=== PATIENT | male | born 1950 | race African-American/Black ===

== ENCOUNTER 2022-06-29 16:20 | Inpatient (IN) | payer OTHER, MEDICAID ==
[~2022-06-29] VITALS: Ht 175.3 cm; Wt 56.7 kg
[2022-06-29 16:21] VITALS: BP 104/58
--- NOTE | 2022-06-29 16:25 | NUR ---
JESUS VALLADARES VIA GURNEY TO BED 08.
[2022-06-29] MEDS ORDERED: VANCOMYCIN 1,000 MG in DEXTROSE 5% 250 ML IV ONE (16:35)
[2022-06-29] MEDS ORDERED: PIPERACILLIN/TAZOBACTAM 4.5 GM in DEXTROSE 5% 100 ML IV ONE (16:35)
[2022-06-29] MEDS ORDERED: NACL 0.9% 1,000 ML IV ONE (16:35)
[2022-06-29] MEDS ORDERED: ACETAMINOPHEN EXTRA STRENGTH 500 MG TAB PO ONE (17:00)
[2022-06-29] MEDS ORDERED: MORPHINE SULFATE 4 MG/ML SYR IVP ONE (17:00)
[2022-06-29 17:01] LABS: BASOPHILS # (AUTO) 0.1 K/uL (0.00-0.22); BASOPHILS % (AUTO) 0.8 % (0.0-2.0); EOSINOPHILS # (AUTO) 0.1 K/uL (0-0.4); EOSINOPHILS % (AUTO) 0.9 % (0.0-4.0); HEMATOCRIT 24.7 % (36-52); HEMOGLOBIN 7.9 g/dL (12.0-18.0); LYMPHOCYTES # (AUTO) 3.7 K/uL (2.0-11.5); LYMPHOCYTES % (AUTO) 27.5 % (20.5-51.1); MEAN CORPUSCULAR HEMOGLOBIN 30 pg (27-31); MEAN CORPUSCULAR HGB CONC 32 g/dL (33-37); MEAN CORPUSCULAR VOLUME 94.4 fL (80-94); MONOCYTES % (AUTO) 7.5 % (1.7-9.3); NEUTROPHILS # (AUTO) 8.4 K/uL (1.8-7.7); NEUTROPHILS % (AUTO) 63.3 % (42.2-75.2); PLATELET COUNT (AUTO) 172 K/uL (140-450); RED BLOOD CELL COUNT(AUTO) 2.62 MIL/uL (4.20-6.10); RED CELL DISTRIBUTION WIDTH 22.1 % (11.6-13.7); WHITE BLOOD COUNT (AUTO) 13.3 K/uL (4.8-10.8)
[2022-06-29] MEDS ORDERED: VANCOMYCIN 1,000 MG VIAL ONE (17:14)
[2022-06-29] MEDS ORDERED: PIPERACILLIN/TAZOBACTAM 4.5 GM VIAL IV ONE (17:15)
[2022-06-29 17:24] LABS: ALBUMIN 2.2 g/dL (3.4-5.0); ANION GAP 19.2 (8-16); ASPARTATE AMINOTRANSFERASE 89 U/L (15-37); CARBON DIOXIDE 20.2 mmol/L (21-32); CHLORIDE 104 mmol/L (98-107); GLUCOSE 147 mg/dL (74-106); POTASSIUM 3.4 mmol/L (3.5-5.1); SODIUM SERUM 140 mmol/L (136-145); TOTAL BILIRUBIN 0.4 mg/dL (0.0-1.0)
[2022-06-29 17:28] LABS: UREA NITROGEN, BLOOD 67 mg/dL (7-18)
--- NOTE | 2022-06-29 17:40 | NUR ---
72YR OLD MALE BIB EMS C/O R FOOT PAIN. PT LEFT FOOT DECAYING FLESH ; PRESSURE WOUNDS ON SACRAL AREA . PT HAS A RIGHT LEG AMPUTEE. PT LOOKS DESHOVELED. ON INSPECTOR MATERIALS AND PROCESSES. HOB ELEVATED. PT HAD SOILED CLOTHES OF URINE AND STOOL. 20G IV CATH IN R FOREARM. PT IS BED BOUND. SPO2 98% RESP EVEN AND UNLABORED.
--- NOTE | 2022-06-29 17:55 | NUR ---
PT TO CT
--- NOTE | 2022-06-29 19:01 | NUR ---
PRESSURE WOUNDS TO SACRAL AREA AND LEFT FOOT. WOUND PICTURES TAKEN.
--- NOTE | 2022-06-29 19:07 | NUR ---
COVID SWAB COLLECTED
--- NOTE | 2022-06-29 19:29 | NUR ---
PT PROVIDED URINAL AND GIVEN COFFEE. PT PLACED IN HIGH FOWLERS POSITION
[2022-06-29 19:31] LABS: PROTHROMBIN TIME 11.3 secs (10.8-13.4)
[2022-06-29] MEDS ORDERED: VANCOMYCIN PER PHARMACY MC PRN (21:45)
[2022-06-29] MEDS ORDERED: LISI-486 PO (23:39)
[2022-06-29] MEDS ORDERED: ACET-3114 PO (23:39)
--- NOTE | 2022-06-30 00:05 | NUR ---
Patient will be admitted to care of . Admited to TELE. Will go to room 117. Belongings list completed. Report to DEVORA.
[2022-06-30] MEDS ORDERED: PIPERACILLIN/TAZOBACTAM 2.25 GM VIAL IV ONE ×2 (00:53→05:17)
[2022-06-30] MEDS: NACL 0.9% 1,000 ML IV SCH ×2 (00:59→12:27)
[2022-06-30] MEDS: PIPERACILLIN/TAZOBACTAM 2.25 GM in DEXTROSE 5% 50 ML IV SCH ×4 (00:59→17:20)
--- NOTE | 2022-06-30 01:09 | NUR ---
RECEIVED FROM ED AWAKE A/OX3 RIGHT BKA AND WOUNDS NOTED PICTURES ON CHART ASSESSMENT COMPLETED PLAN OF CARE REVIEWED BED BATH GIVEN REPOSITIONED FOR COMFORT MD PAGED REGARDING PRN PAIN MEDCATION WILL CONTINUE TO MONIOTR AND ASSESS
[2022-06-30 04:00] VITALS: BP 118/52
[2022-06-30 07:12] LABS: BASOPHILS % (AUTO) 0.4 % (0.0-2.0); EOSINOPHILS # (AUTO) 0.2 K/uL (0-0.4); EOSINOPHILS % (AUTO) 1.4 % (0.0-4.0); HEMATOCRIT 21.9 % (36-52); HEMOGLOBIN 7.1 g/dL (12.0-18.0); LYMPHOCYTES # (AUTO) 4.5 K/uL (2.0-11.5); LYMPHOCYTES % (AUTO) 35.3 % (20.5-51.1); MEAN CORPUSCULAR HEMOGLOBIN 31 pg (27-31); MEAN CORPUSCULAR HGB CONC 32 g/dL (33-37); MEAN CORPUSCULAR VOLUME 94.5 fL (80-94); MONOCYTES # (AUTO) 0.8 K/uL (0.8-1.0); MONOCYTES % (AUTO) 6.3 % (1.7-9.3); NEUTROPHILS # (AUTO) 7.2 K/uL (1.8-7.7); NEUTROPHILS % (AUTO) 56.6 % (42.2-75.2); PLATELET COUNT (AUTO) 141 K/uL (140-450); RED BLOOD CELL COUNT(AUTO) 2.32 MIL/uL (4.20-6.10); RED CELL DISTRIBUTION WIDTH 21.6 % (11.6-13.7); WHITE BLOOD COUNT (AUTO) 12.7 K/uL (4.8-10.8)
[2022-06-30 07:28] LABS: ANION GAP 14.7 (8-16); CARBON DIOXIDE 22.8 mmol/L (21-32); CHLORIDE 107 mmol/L (98-107); CREATININE 1.7 mg/dL (0.6-1.3); GLUCOSE 112 mg/dL (74-106); POTASSIUM 3.5 mmol/L (3.5-5.1); SODIUM SERUM 141 mmol/L (136-145); UREA NITROGEN, BLOOD 51 mg/dL (7-18)
[2022-06-30] MEDS ORDERED: ONDANSETRON 4 MG/2 ML VIAL IVP PRN (07:40)
[2022-06-30] MEDS ORDERED: DOCUSATE SODIUM 100 MG GELCAP PO PRN (07:40)
[2022-06-30] MEDS ORDERED: POTASSIUM CHLORIDE 10 MEQ TABER PO PRN (07:40)
[2022-06-30] MEDS ORDERED: ZOLPIDEM 10 MG TAB PO PRN (07:40)
[2022-06-30] MEDS: MORPHINE SULFATE 2 MG/ML SYR IVP PRN ×3 (07:53→20:33)
[2022-06-30 07:54] VITALS: BP 121/76
--- NOTE | 2022-06-30 09:01 | NUR ---
PATIENT HAS BEEN SCREENED AND CATEGORIZED HIGH NUTRITION RISK. PATIENT WILL BE SEEN WITHIN 1-2 DAYS OF ADMISSION. REFERRAL RECEIVED FOR PRESSURE INJURY TISHA DELATORRE RD
[2022-06-30] MEDS ORDERED: VANCOMYCIN 1,000 MG in DEXTROSE 5% 250 ML IV SCH (12:00)
--- NOTE | 2022-06-30 12:33 | NUR ---
06/30/22 RD INITIAL ASSESSMENT COMPLETED PLEASE REFER TO NUTRITION ASSESSMENT UNDER CARE ACTIVITY FOR ESTIMATED NUTRITIONAL NEEDS. 1. WHEN/IF MEDICALLY APPROPRIATE, RECOMMEND REGULAR DIET WITH PROSOURCE TID 2. RD TO FOLLOW-UP 3-5 DAYS, MODERATE RISK TISHA DELATORRE RD
[2022-06-30 13:34] VITALS: BP 146/79
--- NOTE | 2022-06-30 14:10 | NUR ---
0730 Pt. in bed, aaox4, pain to left foot, left foot noted to have severe wound, pt. with call light in reach, npo for now due to possible surgery by DPM. 0800 Medicated for pain as rx'd, vss 0900 Pt. resting quietly, no s/s of discomfort, call light in reach 1200 Pt. updated on status of DPM, Dr. vasques pt. is here, will see him today. Left foot andrés. 1400 Medicated for pain as rx'd 06/29 Will monitor.
--- NOTE | 2022-06-30 15:50 | NUR ---
DC PLANNING BLANCA CALL [employer] ENFORCEMENT FOR PUBLIC PROPERTY [employer] PARKING ENFORCEMENT AT . SPOKE TO ACCOUNT ASSOCIATE DOMENIC ABOUT PATIENT SITUATION WITH HIS CAR LEFT IN THE STREETS OF [facility] AND [place]. BLANCA PROVIDED INFORMATION ABOUT HIS SHAUN HERNÁNDEZ 2000 AND EXPLAINED PATIENT'S CONCERNS. PER DOMENIC HE WAS UNABLE TO SEE OR FIND OUT IF CAR HAS ALREADY BEEN PHYSICAL THERAPY NURSE BY THE [employer] OR NOT HOWEVER; HE TOOK ALL THE INFORMATION NEEDED AND MADE A NOTE IN THE CODE ENFORCEMENT SYSTEM TO HOPEFULLY AVOID THAT CAR BEEN TOWN, TOOK THESE TELEGRAPHIC TYPEWRITER REPAIRER INFORMATION AND ENDED THE CALL. Addendum: 07/07/22 at 1712 by Manjula MENDOSA DISCHARGE PLANNING BLANCA CALLED [employer]NF[employer] PUBLIC PROPERTY CEDAR POLICE PARKING ENFORCEMENT FOR THE SECOND TIME AT . SPOKE TO TRAINING ACCOUNT ASSOCIATE BANDAR Bagley TO GET AN UPDATE ON PATIENT'S CAR WHO STILL LEFT PARKED AT IN THE STREETS OF [facility] AND [place]. ACROSS FROM THE [employer] IN [facility]. PER ACCOUNT ASSOCIATE Yudi THE CAR HAS NOT BEEN REPORTED TOWN AND THE NOTE PLACED IN THEIR SYSTEM STATING THAT DEVELOPMENT REPRESENTATIVE OF THE CAR SHAUN HERNÁNDEZ IS IN [facility] AND CAR SHOULD NOT BE TOWN STILL IN PLACE. HOWEVER; PER ACCOUNT ASSOCIATE Yudi PATIENT'S CAR ITS PARK ON RED AND IF SOMEONE MISSES THE NOTE IN THE SYSTEM THE CAN CAN BE PHYSICAL THERAPY NURSE AND BE TOWN AT ANY TIME. THEREFORE SHE STATED THAT IT WOULD BE BEST IF THE CAR LICENCE PLATE CAN BE PROVIDED TO THE CODE ENFORCEMENT. BLANCA EXPLAINED TO ACCOUNT ASSOCIATE Yudi THAT DID NOT HAVE THAT INFORMATION BUT WILL MEET WITH PATIENT TO SEE IF HE CAN PROVIDE IT TO AVOID HIS CAR BEEN TOWN. SW WILL FOLLOW UP NEEDED. SW MEET WITH PATIENT AT BEDSIDE TO EXPLAIN THE SITUATION WITH HIS CAR AND ASK HIM TO PROVIDE INFORMATION OF HIS CAR LICENCE. PATIENT STATED THAT HE DID NOT HAVE THE NUMBER HOWEVER, REPORTED TO THE SW THAT HE HAD CAR INSURANCE AND THAT HE CAN GET THAT INFORMATION FROM THEM IF HE HAD A PHONE TOP CALL THEM. SW MANAGE TO ASSIST PATIENT WITH HAVING STAFF SET UP A PHONE IN HIS ROOM AND PROVIDED HIM WITH [employer] INS. NUMBER FOR HIM TO CALL THEM AND ASK FOR HIS OWN INFORMATION TO BE PROVIDED; THEREFORE PATIENT WILL BE ABLE TO GET INFORMATION AND HAVE [place] CODE COMPLIANCE ASSIST WITH KEEP HIS CAR NOT TOWN AND POSSIBLY EXPLORE WAYS TO GET HIS CAR MOVE TO THE LOCATION HE IS GOING TO BE RESIDING NOW THAT WE ARE AWARE PATIENT HAS INSURANCE AND HE IS ABLE TO GET HIS INS. SERVICES. SW WILL FOLLOW UP NEEDED.
--- NOTE | 2022-06-30 16:09 | NUR ---
DC PLANNING: THE PATIENT WAS BIBA EMS WITH C/O LLE FOOT WOUND X 2 DAYS, ALSO S/P RIGHT BKA, H/O ASTHMA, DM AND HTN. GIVEN VANCO, ZOSYN, ASA, MORPHINE AND IVF'S IN ED. 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 PATIENT HAS PODIATRY CONSULT, DR CRAIG STATES NO SURGICAL INTERVENTION, OPENED UP BLISTERS AT BEDSIDE, POSSIBLE WOUND CARE AND IV ABX MOVING FORWARD. IRA SPOKE WITH THE PATIENT AT BEDSIDE, HE STATES HE LIVES IN HIS CAR AND STATED HIS CONCERN THAT HIS CAR IS IN TRADE WITH HIS WALLET AND RIGHT LEG PROSTHESIS. HE SOMETIMES GOES TO A 89 YEAR OLD FRIENDS HOUSE TO SHOWER AND STAY FOR A SHORT TIME, HAS BEEN LIVING IN HIS CAR FOR THE LAST 3-4 MONTHS. HE WAS LIVING WITH HIS MOTHER IN [place] BUT STATES HE DOESN'T GET ALONG WITH HER AND FLEW OUT HERE. HE HAS INCOME OF SNF AND SSDI, TOTAL $1060/MONTH. HE STATES HE WOULD PREFER TO RETURN TO HIS CAR FOR OP TREATMENT, IRA EXPLAINED THIS PROBABLY WOULDN'T BE POSSIBLE AND WILL PROBABLY NEED SNF PLACEMENT. HE GOES TO [facility] AND WAS SUPPOSED TO SEE HIS MD THERE THIS PAST MONDAY BUT WAS ADMITTED HERE. IRA ENDORSED TO THE PATIENTS BLANCA BEAR THAT HE IS CONCERNED ABOUT HIS CAR, A 2002 [employer] [place], [place] COLORED, PARKED IN TRADE AT [place] AND [facility] [address]AR [facility] [employer]. BLANCA WILL FOLLOW UP WITH OMID NICOLE REGARDING THIS. IRA WILL FOLLOW. Addendum: 07/01/22 at 1252 by Angelita Mcculloguh CM DC PLANNING: THE PATIENT WAS REFERRED TO [facility] FOR SKILLED SERVICE. PER THEIR NIGHT SHIFT MANAGER JESSENIA BARKER ([phone]), THEY HAVE ONE MALE BED AND WILL HOLD IT FOR US EVEN IF HE DOESN'T DC TODAY. NEW ORDER FOR ID CONSULT NOTED. CM WILL FOLLOW. Addendum: 07/01/22 at 1517 by Angelita Mccullough CM DC PLANNING: PATIENT ACCEPTED TO ROOM 1A, DR DIAZ TO FOLLOW. SNF IS ABLE TO DO QD IV ABX ONLY. TRANSPORT NEEDS TO BE ARRANGED WITH CALL THE CAR ([phone] OPT 4 OPT 1) IF PATIENT DC'S THIS WEEKEND. CM WILL FOLLOW. Addendum: 07/01/22 at 1529 by Angelita Mccullough CM DC PLANNING: PLEASE JESSENIA EGAN NIGHT SHIFT MANAGER FOR [facility] REGARDING IV ABX FREQUENCY IF PATIENT HAS DC ORDERS AT [phone]. CM WILL FOLLOW. Addendum: 07/06/22 at 1237 by Angelita Mccullough CM DC PLANNING: ORDERS FOR HLOC OF CARE TRANSFER FOR VASCULAR SURGERY SECONDARY TO OCCLUSION OF RIGHT FEMORAL ARTERY. IRA SPOKE WITH IRA CHILD AT [facility] ([phone] EXT [phone]), ASKED CM TO FAX TO [facility] WHICH IRA DID. MATEUSZ WILL FAX TO [facility] AND WILL DISCUSS THE CASE WITH HER TOBACCO FLAVORER. CM WILL FOLLOW. Addendum: 07/06/22 at 1541 by Angelita Mccullough CM DC PLANNING: HLOC TRANSFER CANCELLED, PER ATTENDING MD PATIENT CAN F/U OP. IRA SPOKE WITH JESSENIA AT [facility] TO ENDORSE PATIENT DC TO SNF IN AM, UPDATED CLINICALS FAXED. IRA WILL FOLLOW. Addendum: 07/07/22 at 1104 by Angelita Mccullough CM DC PLANNING: MESSAGE LEFT FOR KASSI CHILD ([phone] EXT [phone]) ASKING FOR AUTHORIZATION FOR [facility] AND TRANSPORT. POTENTIAL DC TODAY, IRA SPOKE WITH THE PATIENT AT BEDSIDE TO ENDORSE DC, THE PATIENT IS STILL CONCERNED ABOUT HIS CAR, CM LET HIM KNOW THAT HIS SW WILL UPDATE HIM ON HER CONVERSATION WITH [employer]. IRA ALSO ASKED JESSENIA TO HAVE THE [facility] SW CONTINUE TO FOLLOW UP ON THIS. NO [facility], DR DIAZ TO FOLLOW. IRA WILL FOLLOW. Addendum: 07/07/22 at 1318 by Angelita Mccullough CM DC PLANNING: AUTH FROM [facility] FOR [facility] IS [id number], AUTH FOR [facility] IS [id number]. IRA ENDORSED THAT [facility] DOES NOT USUALLY WANT TO PROVIDE NON-MEDICAL TRANSPORT, ALSO SPOKE WITH JESSENIA AT [facility] TO ASK FOR HELP WITH TRANSPORT, SHE STATES SHE WILL TALK TO [facility] AND HER DERRICK BOAT OPERATOR AND WILL CALL CM BACK. ROOM ASSIGNED IS 1A, DR DIAZ TO FOLLOW, NUMBER TO CALL REPORT IS [phone]. CM WILL FOLLOW. Addendum: 07/08/22 at 1159 by Angelita Mccullough CM DC PLANNING: WAITING FOR IV ABX TO BE CHANGED TO QD FREQUENCY AND FINAL DC ORDER. TRANSPORT WILL BE ARRANGED WITH [facility] ONCE ORDERS ARE RECEIVED. CM WILL FOLLOW. Addendum: 07/08/22 at 1503 by Angelita Mccullough CM DC PLANNING: PATIENT TRANSPORT ARRANGED THROUGH [facility], WAITING FOR NAME OF COMPANY. INSPECTOR MULTIFOCAL LENS TIME [id number], DC ENDORSED TO PATIENTS NURSE. CM WILL FOLLOW. Addendum: 07/08/22 at 1559 by Angelita Mccullough CM DC PLANNING: [facility] UNABLE TO TRANSPORT, TRANSPORT ARRANGED WITH [facility] INSPECTOR MULTIFOCAL LENS BETWEEN 1730 AND 1830. CHANGE IN TRANSPORT ENDORSED TO THE PATIENTS NURSE. CM WILL FOLLOW. Addendum: 07/08/22 at 1635 by Angelita Mccullough CM DC PLANNING: [facility] NOTIFIED CM THAT INSPECTOR MULTIFOCAL LENS WILL BE AT 1830. CM WILL FOLLOW. Addendum: 07/08/22 at 1636 by Angelita Mccullough CM DC PLANNING: CORRECTION TO ABOVE NOTE, INSPECTOR MULTIFOCAL LENS TIME WILL BE 1929. CM WILL FOLLOW.
[2022-06-30 16:46] VITALS: BP 150/80
[2022-06-30 20:00] VITALS: BP 127/60
--- NOTE | 2022-06-30 20:22 | NUR ---
ASSUME CARE OF PATIENT pT IS LYING IN BED IS AWAKE. RESP IS UNLABORED ON ROOM AIR. C/O BACK PAIN. TEMP 100.6. [facility]II[facility]ARE ORDERED FOR TEMP AND PAIN. LEISONS NOED ON RIGHT LOWER ECTREMITY IS CLEAN AND ALVARADO.
[2022-06-30] MEDS: ACETAMINOPHEN 325 MG TAB PO PRN (20:32)
--- NOTE | 2022-06-30 20:44 | NUR ---
MORPHINE SULFATE ADMINISTERED FOR C/O BACK PAIN. RR 20.
--- NOTE | 2022-06-30 21:00 | NUR ---
PATIENT SAID HE HAS NO MEDICAL SALES REPRESENTATIVE. MrEFUSED PETROLEUM ENGINEER CONSULTATION.
[2022-07-01] VITALS: BP 128/54
[2022-07-01] MEDS ORDERED: MAG SULF 2000 MG/WATER PREMIX 50 ML IV PRN
[2022-07-01 04:00] VITALS: BP 127/79
[2022-07-01 07:28] LABS: BASOPHILS # (AUTO) 0.1 K/uL (0.00-0.22); BASOPHILS % (AUTO) 0.7 % (0.0-2.0); EOSINOPHILS # (AUTO) 0.2 K/uL (0-0.4); EOSINOPHILS % (AUTO) 1.3 % (0.0-4.0); HEMATOCRIT 23.1 % (36-52); HEMOGLOBIN 7.4 g/dL (12.0-18.0); LYMPHOCYTES % (AUTO) 28.1 % (20.5-51.1); MEAN CORPUSCULAR HEMOGLOBIN 30 pg (27-31); MEAN CORPUSCULAR HGB CONC 32 g/dL (33-37); MEAN CORPUSCULAR VOLUME 94.8 fL (80-94); MONOCYTES # (AUTO) 0.8 K/uL (0.8-1.0); MONOCYTES % (AUTO) 5.7 % (1.7-9.3); NEUTROPHILS # (AUTO) 9.1 K/uL (1.8-7.7); NEUTROPHILS % (AUTO) 64.2 % (42.2-75.2); PLATELET COUNT (AUTO) 150 K/uL (140-450); RED BLOOD CELL COUNT(AUTO) 2.44 MIL/uL (4.20-6.10); RED CELL DISTRIBUTION WIDTH 22.5 % (11.6-13.7); WHITE BLOOD COUNT (AUTO) 14.1 K/uL (4.8-10.8)
[2022-07-01] MEDS: PIPERACILLIN/TAZOBACTAM 2.25 GM in DEXTROSE 5% 50 ML IV SCH ×4 (07:30→23:16)
[2022-07-01] MEDS: NACL 0.9% 1,000 ML IV SCH ×3 (07:32→22:23)
[2022-07-01 07:52] LABS: ANION GAP 14.2 (8-16); CARBON DIOXIDE 22.3 mmol/L (21-32); CHLORIDE 109 mmol/L (98-107); CREATININE 1.4 mg/dL (0.6-1.3); GLUCOSE 117 mg/dL (74-106); POTASSIUM 3.5 mmol/L (3.5-5.1); SODIUM SERUM 142 mmol/L (136-145); UREA NITROGEN, BLOOD 28 mg/dL (7-18)
--- NOTE | 2022-07-01 07:59 | NUR ---
LEFT FOOT WOUND CONSULT NOT DONE, PT SEEN AND TREATED BY IN HOUSE PODIATRY TEAM UNDER DR. CRAIG'S CARE. PLEASE CONTINUE TO FOLLOW PODIATRY 'S ORDER FOR WOUND CARE.
[2022-07-01 08:00] VITALS: BP 132/60
--- NOTE | 2022-07-01 08:00 | NUR ---
PT. ADMITTED WITH MULTIPLE UN-STAGEABLE PRESSURE INJURY TO SACRAL COCCYX, LEFT KNEE AND LEFT HIP. PT. REFUSED WOUND CARE CONSULT, , BED SHEET COVER OVER HIS HEAD ,ATTEMPT X3 AND EXPLAIN TO PT. WITH RISKS AND BENEFIT. PT CONTINUE TO REFUSE. POC DISCUSSED WITH DR. BYRD NOTIFIED.POC DISCUSSED WITH PRIMARY RN TO FOLLOW WOUND CARE PROTOCOLS AT THIS TIME.
--- NOTE | 2022-07-01 08:00 | NUR ---
PT. WITH LOW SHELBY SCALE AT HIGH RISK, CONTINUE TO FOLLOW PRESSURE INJURY PREVENTION INTERVENTIONS. -POSITIONING: TURN AND REPOSITION PATIENT Q 2H OR SOONER USE PILLOWS TO KEEP BONY PROMINENCES FROM DIRECT CONTACT WITH SURFACES USE REPOSITIONING WEDGES TO PROVIDE 30-DEGREE ANGLE FOR SIDE LYING POSITIONS OFFLOADING OR FOAM DRESSING TO ALL TUBING TO PREVENT MEDICAL DEVICES RELATED PRESSURE INJURY -RE-EVALUATING AND MANAGING INCONTINENCE MONITOR SKIN CONDITION DURING POSITION CHANGE DO NOT MASSAGE REDNESS, BONY PROMINENCES FREQUENT MARGARET-CARE AND PROVIDE BARRIER CREAMS PRN IF SOILING MOISTURE CONTROL BY OFFER BED OLIVA/URINAL /ABSORBENT PAD TO WICK AND HOLD MOISTURE KEEP SKIN DRY AND PROTECT FROM FRICTION -MANAGE FRICTION/SHEAR/MOBILITY KEEP HOB AT THE LOWEST LEVEL OF ELEVATION NO MORE THAN 30 DEGREE UNLESS OTHERWISE CONTRAINDICATED USE LIFT SHEET OR TRANSFER DEVICE TO MOVE PATIENT AND PREVENT LATERAL SHEER. PROTECT HEELS, ELBOWS BONY PROMINENCES WITH SKIN BERRIES OR FOAM DRESSING IF EXPOSED TO FRICTION OFFLOAD BILATERAL HEELS BY PLACING PILLOWS UNDER CALVES AT ALL TIMES, UNLESS OTHERWISE CONTRAINDICATED -PRESSURE REDISTRIBUTION SURFACE THERAPY KEHINDE ISOFLEX MATTRESS -NUTRITION: PLEASE FOLLOW RD RECOMMENDATIONS AND OFFER NUTRITION SUPPLEMENTS IF ORDERED. PLEASE CONTACT WOUND CARE NURSE FOR ANY QUESTION AND CHANGE OF WOUND CONDITION.
[2022-07-01 12:00] VITALS: BP 134/61
[2022-07-01] MEDS ORDERED: VANCOMYCIN 1,000 MG in DEXTROSE 5% 250 ML IV SCH (12:00)
[2022-07-01] MEDS: MORPHINE SULFATE 2 MG/ML SYR IVP PRN ×3 (12:18→22:23)
[2022-07-01 16:00] VITALS: BP 134/74
--- NOTE | 2022-07-01 19:20 | NUR ---
RECEIVED PATIENT IN BED ASLEEP, EASILY AROUSABLE BY VERBAL STIMULI. DENIES PAIN AT THIS TIME. NO ACUTE RESPIRATORY DISTRESS NOTED. SKIN WARM AND DRY TO TOUCH. IVF INFUSING WELL ORDERED. BED IN THE LOWEST AND LOCKED POSITION FOR SAFETY, CALL LIGHT WITHIN REACH.
[2022-07-01 20:00] VITALS: BP 147/58
--- NOTE | 2022-07-01 22:23 | NUR ---
PATIENT COMPLAING OF 8/10 RIGHT THIGH PAIN, PROVIDED PAIN MEDICATION. PATIENT INCONTINENT OF URINE, PERINEAL CARE RENDERED. MADE COMFORTABLE IN BED.
--- NOTE | 2022-07-01 23:23 | NUR ---
RE-ASSESSED FOR PAIN, PATIENT IS ASLEEP. NO S/SX OF PAIN NOR DISCOMFORT. CALL LIGHT IN REACH,
[2022-07-02] VITALS: BP 134/61
--- NOTE | 2022-07-02 02:00 | NUR ---
PATIENT ASLEEP. BREATHING EVEN AND UNLABORED.
--- NOTE | 2022-07-02 03:30 | NUR ---
INCONTINENT OF URINE, AM CARE RENDERED. MADE COMFORTABLE IN BED. CALL LIGHT IN REACH.
[2022-07-02] MEDS: MORPHINE SULFATE 2 MG/ML SYR IVP PRN ×3 (03:40→12:25)
[2022-07-02 04:00] VITALS: BP 124/60
[2022-07-02] MEDS: PIPERACILLIN/TAZOBACTAM 2.25 GM in DEXTROSE 5% 50 ML IV SCH ×4 (05:03→23:01)
--- NOTE | 2022-07-02 06:09 | NUR ---
PATIENT IS ASLEEP. ALL NEEDS ATTENDED TO. NO DISTRESS NOTED. SAFETY PRECAUTIONS MAINTAINED DURING THE SHIFT, CALL LIGHT REMAINED WITHIN REACH.
--- NOTE | 2022-07-02 07:34 | NUR ---
SBAR REPORT RECEIVED FROM ALBINA RN, ALL CARES ASSUMED. BED IN LOW AND LOCKED POSITION. CALL LIGHT WITHIN REACH.
[2022-07-02 07:36] LABS: HEMATOCRIT 23.7 % (36-52); HEMOGLOBIN 7.5 g/dL (12.0-18.0); MEAN CORPUSCULAR HEMOGLOBIN 31 pg (27-31); MEAN CORPUSCULAR HGB CONC 32 g/dL (33-37); MEAN CORPUSCULAR VOLUME 97.5 fL (80-94); PLATELET COUNT (AUTO) 136 K/uL (140-450); RED BLOOD CELL COUNT(AUTO) 2.43 MIL/uL (4.20-6.10); RED CELL DISTRIBUTION WIDTH 21.7 % (11.6-13.7); WHITE BLOOD COUNT (AUTO) 15.1 K/uL (4.8-10.8)
[2022-07-02 07:57] LABS: ANION GAP 14.5 (8-16); CARBON DIOXIDE 21.2 mmol/L (21-32); CHLORIDE 108 mmol/L (98-107); CREATININE 1.1 mg/dL (0.6-1.3); GLUCOSE 88 mg/dL (74-106); POTASSIUM 3.7 mmol/L (3.5-5.1); SODIUM SERUM 140 mmol/L (136-145); UREA NITROGEN, BLOOD 14 mg/dL (7-18)
[2022-07-02 08:00] VITALS: BP 125/51
[2022-07-02] MEDS: NACL 0.9% 1,000 ML IV SCH ×2 (10:21→20:24)
[2022-07-02 11:28] LABS: EOSINOPHILS % (MANUAL) 2 % (0-4); LYMPHOCYTES % (MANUAL) 30 % (20-46); METAMYELOCYTES % 3 % (0-0); MONOCYTES % (MANUAL) 7 % (5-12); MYELOCYTES % 2 % (0-0)
[2022-07-02 12:00] VITALS: BP 113/55
[2022-07-02 16:00] VITALS: BP 125/66
--- NOTE | 2022-07-02 18:00 | NUR ---
PT COMPLAINING OF PAIN AT IV SITE. IV REMOVED. NEW IV PLACED TO LEFT FOREARM, 20G, BLOOD RETURN NOTED, FLUSHED WITH NORMAL SALINE.
--- NOTE | 2022-07-02 19:20 | NUR ---
SBAR REPORT GIVEN TO ALBINA SOLARES, ALL CARES ENDORSED.
--- NOTE | 2022-07-02 19:25 | NUR ---
REPORT GIVEN BY AM RN. PATIENT IS ASLEEP, EASILY AWAKEN BY VERBAL STIMULI. DENIES PAIN AT THIS TIME. DENIES SHORTNESS OF BREATH. SKIN WARM AND DRY TO TOUCH. IVF OF NS AT 100 ML/HR INFUSING WELL ORDERED IN THE LEFT FOREARM, NO REDNESS NOR SWELLING NOTED. BED IN THE LOWEST AND LOCKED POSITION FOR SAFETY, CALL LIGHT IN REACH.
[2022-07-02 20:00] VITALS: BP 136/70
[2022-07-02] MEDS: MAGNESIUM OXIDE 400 MG TAB PO SCH (20:11)
--- NOTE | 2022-07-02 22:00 | NUR ---
REPOSITIONED FOR COMFORT. IVF INFUSING WELL ORDERED. CALL LIGHT IN REACH,
[2022-07-03] MEDS: MORPHINE SULFATE 2 MG/ML SYR IVP PRN ×3 (00:09→21:48)
--- NOTE | 2022-07-03 00:09 | NUR ---
PATIENT COMPLAINING OF 8/10 RIGHT HIP PAIN, MEDICATED ORDERED.
--- NOTE | 2022-07-03 01:09 | NUR ---
RE-ASSESSED FOR PAIN, PATIENT IS ASLEEP. NO S/SX OF PAIN NOR DISCOMFORT. CALL LIGHT IN REACH.
--- NOTE | 2022-07-03 02:58 | NUR ---
ROUNDING DONE. PATIENT ASLEEP. BREATHING EVEN AND UNLABORED. CALL LIGHT IN REACH,
[2022-07-03 04:00] VITALS: BP 127/76
--- NOTE | 2022-07-03 05:00 | NUR ---
AM CARE RENDERED. MADE COMFORTABLE IN BED. CALL LIGHT IN REACH.
[2022-07-03] MEDS: NACL 0.9% 1,000 ML IV SCH ×2 (05:06→16:06)
[2022-07-03] MEDS: PIPERACILLIN/TAZOBACTAM 2.25 GM in DEXTROSE 5% 50 ML IV SCH ×3 (05:07→17:19)
--- NOTE | 2022-07-03 06:25 | NUR ---
PATIENT IS ASLEEP. ALL NEEDS ATTENDED TO. SAFETY PRECAUTIONS MAINTAINED DURING THE SHIFT. CALL LIGHT REMAINED WITHIN REACH,
--- NOTE | 2022-07-03 07:15 | NUR ---
RECEIVED BEDSIDE REPORT FROM ALBINA SMITH RN FOR CONTINUITY OF CARE. PT IN THE BED, AAOX4, ON RM AIR. 20G TO RFA, INFUSING NS AT 100 ML/H. CONTINENT OF BOWEL AND BLADDER. SKIN NOT INTACT, SEE WOUND ASSESSMENT. SAFETY PRECAUTIONS MET. INITIAL ASSESSMENT COMPLETE, WILL CONTINUE TO MONITOR.
[2022-07-03 07:34] LABS: HEMATOCRIT 24.2 % (36-52); HEMOGLOBIN 7.7 g/dL (12.0-18.0); MEAN CORPUSCULAR HEMOGLOBIN 31 pg (27-31); MEAN CORPUSCULAR HGB CONC 32 g/dL (33-37); MEAN CORPUSCULAR VOLUME 96.9 fL (80-94); PLATELET COUNT (AUTO) 134 K/uL (140-450); RED CELL DISTRIBUTION WIDTH 21.5 % (11.6-13.7); WHITE BLOOD COUNT (AUTO) 17.4 K/uL (4.8-10.8)
[2022-07-03 07:52] LABS: ANION GAP 12.2 (8-16); CARBON DIOXIDE 23.5 mmol/L (21-32); CHLORIDE 106 mmol/L (98-107); GLUCOSE 98 mg/dL (74-106); POTASSIUM 3.7 mmol/L (3.5-5.1); SODIUM SERUM 138 mmol/L (136-145); UREA NITROGEN, BLOOD 12 mg/dL (7-18)
[2022-07-03 08:00] VITALS: BP 131/63
[2022-07-03 08:12] LABS: BASOPHILS % (MANUAL) 0 % (0-2); EOSINOPHILS % (MANUAL) 1 % (0-4); LYMPHOCYTES % (MANUAL) 16 % (20-46); MONOCYTES % (MANUAL) 5 % (5-12)
[2022-07-03 08:13] LABS: METAMYELOCYTES % 3 % (0-0); MYELOCYTES % 2 % (0-0)
[2022-07-03] MEDS: VANCOMYCIN 1,000 MG in DEXTROSE 5% 250 ML IV SCH (09:10)
[2022-07-03] MEDS: MAGNESIUM OXIDE 400 MG TAB PO SCH (09:11)
--- NOTE | 2022-07-03 09:30 | NUR ---
AM MEDS GIVEN ORDERED. TOLERATED WELL. WILL CONTINUE TO MONITOR
--- NOTE | 2022-07-03 10:30 | NUR ---
DR JONH FOURNIER AT BEDSIDE, ORDERED PT TO BE FULL CODE.
--- NOTE | 2022-07-03 12:30 | NUR ---
IV ZOSYN GIVEN ORDERED. WILL CONTINUE TO MONITOR. PT RESTING, NO S/S ACUTE DISTRESS.
--- NOTE | 2022-07-03 12:40 | NUR ---
PT COMPLAINS OF 6/10 PAIN IN BACK/ABD. MORPHINE GIVEN ORDERED. WILL CONTINUE TO MONITOR.
--- NOTE | 2022-07-03 13:30 | NUR ---
DR MCLAUGHLIN ROUNDING AT BEDSIDE. NO NEW ORDERS.
--- NOTE | 2022-07-03 15:30 | NUR ---
IV ZOSYN GIVEN ORDERED. PT HAS NO COMPLAINT OF PAIN. WILL CONTINUE TO MONITOR Addendum: 07/03/22 at 1833 by Mara Shell RN WRONG TIME PLEASE DISREGARD
--- NOTE | 2022-07-03 15:30 | NUR ---
PT RESTING, NO S/S DISTRESS. RESPIRATIONS EVEN AND UNLABORED.
[2022-07-03 16:00] VITALS: BP 135/61
--- NOTE | 2022-07-03 16:00 | NUR ---
ADMINISTERED NEW BAG OF 1L NS, OLD BAG EMPTY.
--- NOTE | 2022-07-03 17:30 | NUR ---
IV ZOSYN GIVEN ORDERED. PT HAS NO COMPLAINT OF PAIN. WILL CONTINUE TO MONITOR
--- NOTE | 2022-07-03 19:26 | NUR ---
ENDORSED BEDSIDE REPORT TO NIGHT RN ALEJO FOR CONTINUITY OF CARE. PT IN NO ACUTE DISTRESS. ALL QUESTIONS ANSWERED.
--- NOTE | 2022-07-03 19:27 | NUR ---
RECEIVED SHIFT REPORT FROM AMANDA SOLARES, PATIENT WAS STABLE DURING SHIFT REPORT. [email or web address]
[2022-07-03 20:00] VITALS: BP 150/93
--- NOTE | 2022-07-03 20:02 | NUR ---
RECEIVED ENDORSEMENT OF PATIENT FROM AMANDA SOLAERS, PATIENT WAS STABLE AT CHANGE OF SHIFT. PATIENT IN BED ALERT AND ORIENTED X [address] NO NOTED DRESSING TO LEFT FOOT. INSTRUCTIONS AIR TO DRY. PATIENT WAS KEPT CLEAN AND DRY. PATIENT WAS ABLE TO VERBALIZE PAIN LEVEL WHICH WAS A 0 TA THIS TIME. IV SITE CLEAN AND INTACT. BED LOWERED TO THE LOWEST LEVEL FOR SAFETY. CALL LIGHT WITH IN REACH. PATIENT IS AWARE HOW TO USE THE CALL LIGHT FOR ASSISTANCE AND WANTS. SIDE RAILS UP X 3. [email or web address]
--- NOTE | 2022-07-03 21:41 | NUR ---
COVERING RN CECY RECHECKED BP AT 150/90 TO GIVE PAIN PRN. WILL REASSESS IN ONE HOUR OF THE EFFECTIENESS. CALL LIGHT WITHIN REACH. SIDE RAILS UP X 3 FOR SAFETY AND SELF ADJUSTMENT FOR COMFORT. [email or web address]
--- NOTE | 2022-07-03 23:04 | NUR ---
PATIENT NOTED IN BED ASLEEP. WAS ABLE TO TAKE ORAL MEDICATION WITHOUT INCIDENT. NO NOTE S/S OF PAIN/DISCOMFORT. NO NOTED RESPIRATORY DISTRESS. BED AT LOWEST LEVEL. SIDE RAILS UP X 3 FOR SAFETY AND ADJUSTMENT FOR COMFORT. CALL LIGHT WITHIN REACH FOR ASSISTANCE. [email or web address]
--- NOTE | 2022-07-04 01:44 | NUR ---
PATIENT REMAINS IN BED ASLEEP. BED ALARM ON AND WORKING TO DETECT PATIENT GETTING OUT OF THE BED. NO NOTED S/S OF PAIN/DISCOMFORT. NO NOTED RESPIRATORY DISTRESS. SIDE RAILS UP X 3. CALL LIGHT WITHIN REACH. BED AT THE LOWEST LEVEL. [email or web address]
[2022-07-04] MEDS: NACL 0.9% 1,000 ML IV SCH ×3 (02:50→22:00)
--- NOTE | 2022-07-04 03:16 | NUR ---
NURSING CHANGED OUT IV FLUIDS FOR A NEW BAG.PATIENT REMAINS IN BED ASLEEP. NO NOTED S/S OF PAIN/DISCOMFORT. NO NOTED RESPIRATORY DISTRESS. SIDE RAILS UP X 3. CALL LIGHT WITHIN REACH. BED AT THE LOWEST LEVEL. [email or web address]
[2022-07-04 04:00] VITALS: BP 118/56
--- NOTE | 2022-07-04 05:30 | NUR ---
PATIENT REMAINS IN BED ASLEEP. NO NOTED S/S OF PAIN/DISCOMFORT. NO NOTED RESPIRATORY DISTRESS. SIDE RAILS UP X 3. CALL LIGHT WITHIN REACH. BED AT THE LOWEST LEVEL. [email or web address]
[2022-07-04] MEDS: PIPERACILLIN/TAZOBACTAM 2.25 GM in DEXTROSE 5% 50 ML IV SCH ×5 (06:00→18:26)
[2022-07-04 07:09] LABS: ANION GAP 12.7 (8-16); CARBON DIOXIDE 22.8 mmol/L (21-32); CHLORIDE 107 mmol/L (98-107); CREATININE 0.9 mg/dL (0.6-1.3); GLUCOSE 99 mg/dL (74-106); POTASSIUM 3.5 mmol/L (3.5-5.1); SODIUM SERUM 139 mmol/L (136-145); UREA NITROGEN, BLOOD 10 mg/dL (7-18)
--- NOTE | 2022-07-04 07:12 | NUR ---
ENDORSE PATIENT TO SURINDER HERNÁNDEZ, PATIENT WAS STABLE AT THE CHANGE OF SHIFT. [email or web address]
--- NOTE | 2022-07-04 07:29 | NUR ---
RECEIVED REPORT FROM FISHING MANAGER NURSE FOR CONTINUITY OF CARE. PATIENT AWAKE RESPONDS VERBALLY. RESPIRATION EVEN AND NOT LABORED NO SHORTNESS OF BREATH. PATIENT IV ON LEFT FORE ARM JOSELINE 20 RUNNING NS AT 100 CC/HOUR. ALL SAFETY MEASURE IN PLACE.
[2022-07-04 08:00] VITALS: BP 116/64
[2022-07-04 08:06] LABS: BASOPHILS # (AUTO) 0.2 K/uL (0.00-0.22); EOSINOPHILS # (AUTO) 0.2 K/uL (0-0.4); LYMPHOCYTES # (AUTO) 4.8 K/uL (2.0-11.5); LYMPHOCYTES % (AUTO) 30.3 % (20.5-51.1); MEAN CORPUSCULAR HEMOGLOBIN 30 pg (27-31); MEAN CORPUSCULAR HGB CONC 32 g/dL (33-37); MEAN CORPUSCULAR VOLUME 93.9 fL (80-94); MONOCYTES # (AUTO) 0.8 K/uL (0.8-1.0); MONOCYTES % (AUTO) 4.9 % (1.7-9.3); NEUTROPHILS # (AUTO) 9.9 K/uL (1.8-7.7); NEUTROPHILS % (AUTO) 62.8 % (42.2-75.2); PLATELET COUNT (AUTO) 130 K/uL (140-450); RED BLOOD CELL COUNT(AUTO) 2.09 MIL/uL (4.20-6.10); RED CELL DISTRIBUTION WIDTH 21.7 % (11.6-13.7)
[2022-07-04 08:20] LABS: HEMATOCRIT 19.6 % (36-52); HEMOGLOBIN 6.3 g/dL (12.0-18.0); WHITE BLOOD COUNT (AUTO) 15.6 K/uL (4.8-10.8)
--- NOTE | 2022-07-04 08:20 | NUR ---
RECEIVED CRITICAL LEVEL OF HEMOGLOBIN OF 6.3 AND HCT OF 19.[address] GARCIA WAITING FOR RESPONSE.
[2022-07-04] MEDS: VANCOMYCIN 1,000 MG in DEXTROSE 5% 250 ML IV SCH (09:16)
[2022-07-04] MEDS: MAGNESIUM OXIDE 400 MG TAB PO SCH (09:18)
--- NOTE | 2022-07-04 09:24 | NUR ---
RN GAVE IV VANCOMYCIN AND I GAVE MAGNESIUM AND HEPARIN TOLERATED WELL. PATIENT DENIES PAIN AT THIS TIME.
--- NOTE | 2022-07-04 09:30 | NUR ---
RN STARTED IV VANCO AT O918 NO ADVERSE REACTION NOTED. ENCOURAGED TO INCREASE FLUID TOLERATED.
--- NOTE | 2022-07-04 10:15 | NUR ---
TREATMENT NURSE ASSESS PATIENT AND DID TREATMENT ON KNEE, FOOT AND SACRAL. SHE SAID SHE WILL RECOMMEND WOUND DEBRIDEMENT AND SNF PLACEMENT FOR WOUND MANAGEMENT.
--- NOTE | 2022-07-04 10:25 | NUR ---
WOUND CARE NOTE: PT. ALLOW WOUND CARE NURSE TO ASSESS THE WOUNDS. POC DISCUSSED WITH PRIMARY NURSE, POC DISCUSSED WITH DR. BYRD WITH RECOMMENDATION SURGEON CONSULT FOR SACRALCOCCYX DEBRIDEMENT. LEFT FOOT WILL CONTINUE WOUND CARE INSTRUCTIONS. INTEGUMENTARY: - PRESSURE INJURY UN-STAGEABLE LEFT HIP 4X4CM 100% BLACK DRY THIN ESCHAR TISSUE. PAIN 5/10 - PRESSURE INJURY UN-STAGEABLE LEFT KNEE 7X4CM IRREGULAR SHAPE, 100% AMEZCUA COLOR DRY WOUND WITH WOUND EDGE DARK BROWN STABLE ESCHAR TISSUE. PAIN 7/10 -PRESSURE INJURY UN-STAGEABLE MULTIPLE WOUNDS TO SACRALCOCCYX, BUTTOCKS AND BILATERAL ISCHIAL AREAS WITH ALL WOUND EDGES AND MARGARET-WOUND SKIN MERGED TOGETHER, ENTIRE AREA MEASUREMENT [id number], WOUND BED 90% AMEZCUA/BROWN SLOUGH TISSUE, 10% YELLOW SLOUGH TISSUE, MODERATE AMOUNT PURULENT DRAINAGE, MILD ODOR, WOUND EDGE FLAT, MARGARET-WOUND SKIN MOIST AND DENUDED. -LEFT FOOT ARTERIAL ULCER S/P DEBRIDEMENT WOUND DORSAL AREA [id number] WOUND BED 100% AMEZCUA COLOR DRY WOUND WITH WOUND EDGE DARK BROWN ESCHAR TISSUE. MARGARET-WOUND SKIN DRY SCABS, DRYING BLISTERING SKIN, PAIN 7/10 -LEFT FOOT ARTERIAL ULCER S/P DEBRIDEMENT WOUND PLANTER AREA 4X6X0.2CM WOUND BED 60% PINK COLOR AND 40% MOIST SLOUGH TISSUE WITH WOUND EDGE DARK BROWN ESCHAR TISSUE. MARGARET-WOUND SKIN DRYING BLISTERING SKIN EXTENDED TO LEFT HEEL, FURTHER DAMAGE INDICATED, PAIN 7/10 RECOMMENDATIONS: - CLEANSE LEFT HIP, LEFT KNEE, SACRALCOCCYX WOUNDS WITH WOUND CLEANSING SOLUTION, APPLY HYDROGEL TO WOUND BED WITH ADAPTIC DRESSING AND COVER WITH ABD DRY DRESSING SECURE WITH TAPE QD AND PRN IF SOILING -CLEANSE LEFT FOOT WOUNDS WITH WOUND CLEANSING SOLUTION, APPLY MOIST 4X4 BETADINE SOLUTION ADAPTIC DRESSING TO WOUND BED AND COVER WITH DRY DRESSING, WRAP WITH KERLIX ROLL LOOSELY QD AND PRN IF SOILING -OFFLOADING LEFT FOOT WITH HEEL RAISER -POSITIONING: TURN AND REPOSITION PATIENT Q 2H OR SOONER USE PILLOWS TO KEEP BONY PROMINENCES FROM DIRECT CONTACT WITH SURFACES USE REPOSITIONING WEDGES TO PROVIDE 30-DEGREE ANGLE FOR SIDE LYING POSITIONS OFFLOADING OR FOAM DRESSING TO ALL TUBING TO PREVENT MEDICAL DEVICES RELATED PRESSURE INJURY -RE-EVALUATING AND MANAGING INCONTINENCE MONITOR SKIN CONDITION DURING POSITION CHANGE DO NOT MASSAGE REDNESS, BONY PROMINENCES, DO NOT USE DONUT-TYPE DEVICES FREQUENT MARGARET-CARE AND PROVIDE BARRIER CREAMS PRN IF SOILING MOISTURE CONTROL BY OFFER BED OLIVA/URINAL /ABSORBENT PAD TO WICK AND HOLD MOISTURE. KEEP SKIN DRY AND PROTECT FROM FRICTION -MANAGE FRICTION/SHEAR/MOBILITY KEEP HOB AT THE LOWEST LEVEL OF ELEVATION NO MORE THAN 30 DEGREES UNLESS OTHERWISE CONTRAINDICATED USE LIFT SHEET OR TRANSFER DEVICE TO MOVE PATIENT AND PREVENT LATERAL SHEER. CONSIDER TRAPEZE IF APPROPRIATE PROTECT HEELS, ELBOWS BONY PROMINENCES WITH SKIN BERRIES OR FOAM DRESSING IF EXPOSED TO FRICTION OFFLOAD BILATERAL HEELS BY PLACING PILLOWS UNDER CALVES AT ALL TIMES, UNLESS OTHERWISE CONTRAINDICATED -PRESSURE REDISTRIBUTION SURFACE THERAPY KEHINDE ISOFLEX SHAWN MATTRESS -NUTRITION: PLEASE FOLLOW RD RECOMMENDATIONS AND OFFER NUTRITION SUPPLEMENTS IF ORDERED.
--- NOTE | 2022-07-04 12:51 | NUR ---
SUJATHA PRUETT ZOSYN ANTIBIOTIC TOLERATED WELL NO ADVERSE REACTION NOTED.
[2022-07-04] MEDS: SKINTEGRITY HYDROGEL TP SCH (13:23)
[2022-07-04] MEDS: GAUZE TP SCH (13:23)
--- NOTE | 2022-07-04 14:00 | NUR ---
IV ANTIBIOTIC DONE ABOUT TO GET BLOOD BUT RADIOLOGY AIR CONTROL/ANTI AIR WARFARE OFFICER PATIENT FOR CHEST X RAY PATIENT ALERT AND NO DISTRESS NOTED.
--- NOTE | 2022-07-04 15:00 | NUR ---
PATIENT ALERT VERBALLY RESPONSIVE STARTED BLOOD TRANSFUSION.
--- NOTE | 2022-07-04 15:32 | NUR ---
SUJATHA CHRISTINA GAVE MORPHINE [address] SPIVEY AT BED SIDE ASSESS PATIENT.
[2022-07-04] MEDS: MORPHINE SULFATE 2 MG/ML SYR IVP PRN ×2 (15:40→22:23)
--- NOTE | 2022-07-04 16:30 | NUR ---
PATIENT ON STABLE CONDITION NO ADVERSE REACTION NOTED ONGOING BLOOD TRANSFUSION. CALL LIGHT WITH IN EASY REACH.
--- NOTE | 2022-07-04 18:25 | NUR ---
BLOOD TRANSFUSION DONE NO ADVERSE REACTION NOTED TO PATIENT. PATIENT ALERT AND ORIENTED NO DISTRESS NOTED.
--- NOTE | 2022-07-04 18:31 | NUR ---
RN GONZALES PRUETT IV ANTIBIOTIC TOLERATED WELL. PATIENT EATING DINNER INFORM THAT AFTER MIDNIGHT PATIENT NPO VERBALIZED UNDERSTANDING.
--- NOTE | 2022-07-04 19:30 | NUR ---
GAVE REPORT TO REMOTE BROADCAST ENGINEER NURSE FOR CONTINUITY OF CARE.
--- NOTE | 2022-07-04 19:31 | NUR ---
RECEIVED ENDORSEMENT FROM DAY SHIFT NURSE FOR CONTINUITY OF CARE.
[2022-07-04 20:00] VITALS: BP 133/67
--- NOTE | 2022-07-04 20:30 | NUR ---
DR. NANDINI HADDAD CALLED TO CHECK LABS, PLAN PT WILL HAVE DEBRIDEMENT PROCEDURE TOMORROW, SUGGESTED TO HAVE 1 MORE PACK RBC, TOTAL OF 2 PACKS RELATED TO HGB = 6.3.
--- NOTE | 2022-07-04 20:45 | NUR ---
DR. GARCIA PRESCRIBED 1 RBC PACK FOR PT, ORDER CARRIED OUT.
--- NOTE | 2022-07-04 20:45 | NUR ---
PT HAS A LOW GRADE FEVER 99.8, COOLING MEASURES APPLY.
--- NOTE | 2022-07-04 21:00 | NUR ---
HEPARIN IS NOT ADMINISTERED DUE TO PT WILL HAVE DEBRIDEMENT PROCEDURE TOMORROW 07/05/22.
--- NOTE | 2022-07-04 23:30 | NUR ---
PT HAS FEVER OF 100.3, TYLENOL ADMINISTERED ORDERED & COOLING MEASURE CONTINUE TO APPLY.
--- NOTE | 2022-07-05 00:30 | NUR ---
PT TEMP 99.7, COOLING MEASURES ON GOING. PT IS ON NPO AFTER MIDNIGHT.
--- NOTE | 2022-07-05 01:00 | NUR ---
PT DENIES OF HEADACHE. VITAL SIGNS CHECK: B/P-100/44, P-80, T-99.0, R-20, BLOOD TRANSFUSION STARTED. PT IS ON STABLE CONDITION.
[2022-07-05] MEDS: MORPHINE SULFATE 2 MG/ML SYR IVP PRN ×4 (01:24→20:46)
[2022-07-05 04:00] VITALS: BP 142/68
--- NOTE | 2022-07-05 04:00 | NUR ---
BLOOD TRANSFUSION COMPLETED, PT IS ON STABLE CONDITION, NO SIDE REACTION, DENIES OF HEADACHE/NAUSEA/PAIN. VITAL SIGNS: B/P-142/68, P-63, R-18, T-98.2, O2 SAT-98% ROOM AIR.
[2022-07-05 05:41] LABS: BASOPHILS # (AUTO) 0.2 K/uL (0.00-0.22); BASOPHILS % (AUTO) 1.2 % (0.0-2.0); EOSINOPHILS # (AUTO) 0.2 K/uL (0-0.4); HEMATOCRIT 28.3 % (36-52); HEMOGLOBIN 9.3 g/dL (12.0-18.0); LYMPHOCYTES # (AUTO) 4.5 K/uL (2.0-11.5); LYMPHOCYTES % (AUTO) 25.7 % (20.5-51.1); MEAN CORPUSCULAR HEMOGLOBIN 29 pg (27-31); MEAN CORPUSCULAR HGB CONC 33 g/dL (33-37); MEAN CORPUSCULAR VOLUME 89.2 fL (80-94); MONOCYTES % (AUTO) 5.8 % (1.7-9.3); NEUTROPHILS # (AUTO) 11.7 K/uL (1.8-7.7); NEUTROPHILS % (AUTO) 66.3 % (42.2-75.2); PLATELET COUNT (AUTO) 135 K/uL (140-450); RED BLOOD CELL COUNT(AUTO) 3.17 MIL/uL (4.20-6.10); RED CELL DISTRIBUTION WIDTH 23.7 % (11.6-13.7); WHITE BLOOD COUNT (AUTO) 17.7 K/uL (4.8-10.8)
[2022-07-05] MEDS: PIPERACILLIN/TAZOBACTAM 2.25 GM in DEXTROSE 5% 50 ML IV SCH ×4 (06:49→12:00)
[2022-07-05 06:56] LABS: ANION GAP 13.4 (8-16); CARBON DIOXIDE 25.2 mmol/L (21-32); CHLORIDE 108 mmol/L (98-107); GLUCOSE 96 mg/dL (74-106); POTASSIUM 4.6 mmol/L (3.5-5.1); SODIUM SERUM 142 mmol/L (136-145); UREA NITROGEN, BLOOD 12 mg/dL (7-18)
--- NOTE | 2022-07-05 07:19 | NUR ---
PT IS ON STABLE CONDITION. DENIES OF PAIN. ALL SAFETY MEASURES IN PLACE. CALL LIGHT WITHIN THE REACH. ENDORSED TO DAY SHIFT NURSE FOR CONTINUITY OF CARE.
--- NOTE | 2022-07-05 07:20 | NUR ---
RECEIVED ENDORSEMENT FROM HEAVY CLEANER NURSE FOR CONTINUITY OF CARE. PATIENT IV ON LEFT FORE ARM JOSELINE 20 RUNNING ZOSYN AT THIS TIME NO ADVERSE REACTION NOTED. RESPIRATION EVEN AND NOT LABORED NO SHORTNESS OF BREATH ON ROOM AIR. ALL SAFETY MEASURE IN PLACE. WOUND BED PROPERLY WORKING. DENIES PAIN.
--- NOTE | 2022-07-05 07:25 | NUR ---
PATIENT ALERT ORIENTED NO DISTRESS NOTED. PATIENT WHEELED BY 2 OR NURSE FOR HIS WOUND DEBRIDEMENT.
[2022-07-05] MEDS ORDERED: HYDROGEN PEROXIDE 3% 240 ML BTL TP ONE (07:54)
[2022-07-05] MEDS: NACL 0.9% 1,000 ML IV SCH ×2 (08:00→17:18)
[2022-07-05] MEDS ORDERED: SEVOFLURANE 250 ML BTL INH ONE (08:37)
[2022-07-05] MEDS ORDERED: fentaNYL citrate 0.05 MG/ML VIAL ONE (08:50)
[2022-07-05] MEDS: MAGNESIUM OXIDE 400 MG TAB PO SCH (09:00)
[2022-07-05] MEDS ORDERED: LABETALOL 20 MG/4 ML VIAL IVP PRN (09:43)
[2022-07-05] MEDS ORDERED: METOCLOPRAMIDE 10 MG/2 ML INJ VIAL IVP PRN (09:43)
[2022-07-05] MEDS ORDERED: hydrALAZINE 20 MG/ML VIAL IVP PRN (09:43)
[2022-07-05] MEDS ORDERED: HYDROmorphone 1 MG/ML AMP IVP PRN (09:45)
[2022-07-05] MEDS: LACTATED RINGERS 1,000 ML IV SCH (09:45)
[2022-07-05] MEDS: VANCOMYCIN HCL 1.25 GM in DEXTROSE 5% 250 ML IV SCH (10:30)
--- NOTE | 2022-07-05 10:57 | NUR ---
AT 1040 PATIENT BACK FROM OR. PATIENT ON STABLE CONDITION VERBALLY RESPONSIVE. ASKING FOR FOOD ORDER CLEAR LIQUID DIET. NO SIGN AND SYMPTOMS OF BLEEDING OR ANY ADVERSE REACTION FROM PROCEDURE.
--- NOTE | 2022-07-05 11:45 | NUR ---
PHARMACY CALLED IF ZOSYN CAN BE INCREASE KIDNEY FUNCTION IS IMPROVING DR. GARCIA MADE AWARE WAITING FOR RESPONSE.
[2022-07-05] MEDS ORDERED: ONDANSETRON 4 MG/2 ML VIAL ONE (12:54)
[2022-07-05] MEDS ORDERED: PROPOFOL 200 MG/20 ML VIAL IV ONE (12:54)
[2022-07-05] MEDS ORDERED: SUCCINYLCHOLINE CHLORIDE 200 MG/10 ML VIAL IVP ONE (12:56)
[2022-07-05] MEDS: GAUZE TP SCH (13:58)
[2022-07-05] MEDS: SKINTEGRITY HYDROGEL TP SCH (13:58)
--- NOTE | 2022-07-05 14:00 | NUR ---
WOUND TREATMENT DONE PATIENT TOLERATED WELL. NO ADVERSE REACTION NOTED ON ANTIBIOTIC THERAPY.
--- NOTE | 2022-07-05 14:37 | NUR ---
07/05/22 RD FOLLOW UP COMPLETED PLEASE REFER TO NUTRITION ASSESSMENT UNDER CARE ACTIVITY FOR ESTIMATED NUTRITIONAL NEEDS. 1. CONTINUE CLEAR LIQUID DIET TOLERATED 2. WHEN/IF MEDICALLY APPROPRIATE, RECOMMEND ADVANCING TO REGULAR DIET WITH ENSURE 1XDAY AND PROSOURCE BID FOR WOUND HEALING 3. MONITOR NUTRITION-RELATED LAB VALUES 4. RD TO FOLLOW-UP 7 DAYS, LOW RISK TISHA DELATORRE RD
[2022-07-05 16:00] VITALS: BP 118/59
[2022-07-05] MEDS: ACETAMINOPHEN 325 MG TAB PO PRN (16:01)
--- NOTE | 2022-07-05 16:06 | NUR ---
PATIENT COMPLAIN OF HEADACHE ALSO NOTED WITH TEMP OF 99.3 COOLING MEASURE APPLIED
[2022-07-05] MEDS: PIPERACILLIN/TAZOBACTAM 3.375 GM in DEXTROSE 5% 50 ML IV SCH ×2 (18:01→23:28)
--- NOTE | 2022-07-05 18:47 | NUR ---
PATIENT ALERT ABLE TO MAKE NEEDS KNOWN. RESPIRATION EVEN AND NOT LABORED NO SHORTNESS OF BREATH. NO ADVERSE REACTION NOTED ON IV ANTIBIOTIC. NO ACTIVE BLEEDING NOTED ON S/P WOUND DEBRIDEMENT ON SACROCOCCYX WOUND. PATIENT EATING DINNER AND VERY PLEASE THAT HE CAN HAVE REGULAR DIET AGAIN. CALL LIGHT WITH IN EASY REACH.
--- NOTE | 2022-07-05 19:19 | NUR ---
GAVE REPORT TO MANAGER CORE NURSE NATALIE SOLARES FOR CONTINUITY OF CARE.
[2022-07-05 20:00] VITALS: BP 118/65
--- NOTE | 2022-07-05 20:39 | NUR ---
HX DM - HAD EPISODE OF HEADACHE - BS 145 5 WILL PROVIDE FRESH ICE WATER , C/O PAIN ON OPERATIVE SITE - WILL MEDICATE BP 118/ 65 , HR 88 , O2 SAT 98 % . NO ACTIVE BLEEDING NOTED ON OPERATIVE SITE OR IN THE WOUNDS - WILL GIVE SCHED . HEP SQ - PLT 135 . WOF BLEEDING .
--- NOTE | 2022-07-06 | NUR ---
RESTING ON BED , O2 SAT WNL , HE SAID PAIN BEARABLE AT THIS TIME . CALL LIGHT WITHIN REACH .
--- NOTE | 2022-07-06 01:05 | NUR ---
HIT THE CALL LIGHT - PT. C/O PAIN ON BACK , LEG , AND ON OPERATIVE SITE , BP 130/82 , PA 79 , RR 18 , 02 SAT 95 % - WILL MEDICATE .
[2022-07-06] MEDS: MORPHINE SULFATE 2 MG/ML SYR IVP PRN ×3 (01:21→22:15)
[2022-07-06 04:00] VITALS: BP 130/63
[2022-07-06] MEDS: LACTATED RINGERS 1,000 ML IV SCH (05:45)
--- NOTE | 2022-07-06 06:00 | NUR ---
IRRIGATE POST DEBRIBEMENT SACRAL WOUND ORDERED BY DR. NASIR DOMINIQUE
[2022-07-06] MEDS: NACL 0.9% 1,000 ML IV SCH ×2 (06:05→14:08)
[2022-07-06] MEDS: PIPERACILLIN/TAZOBACTAM 3.375 GM in DEXTROSE 5% 50 ML IV SCH ×3 (06:05→18:09)
--- NOTE | 2022-07-06 06:52 | NUR ---
BLOOD SUGAR CHECK - 85 - WILL GIVE SOME THING TO EAT - WILL ENDORSE .
--- NOTE | 2022-07-06 07:39 | NUR ---
ENDORSED - PT - STABLE . Addendum: 07/06/22 at 0741 by Alexsandra Ge RN ENDORSED TO ALIS HERNÁNDEZ PT HAS HX OF DM - NO BS CHECK MONITORING - SUGGESTING TO ALIS TO ASK TO MD IF DOCTOR WANT TO PUT PT ON BS MONITORING - ALIS HERNÁNDEZ VERBALIZES UNDERSTANDING .
--- NOTE | 2022-07-06 07:40 | NUR ---
RECEIVED REPORT FORM GOLD MINER NURSE FOR CONTINUITY OF CARE. PT IS SLEEPING, EASILY AROUSABLE BY VERBAL STIMULI. RESPIRATIONS EVEN AND UNLABORED ON RA. NO DISTRESS NOTED. A&O4, ABLE TO COMMUNICATE NEEDS. IS SITE AT LEFT WRIST INFUSING NS AT 100ML/HR. CALL LIGHT WITHIN REACH. SAFETY PRECAUTIONS IN PLACE. WILL CONTINUE TO MONITOR.
[2022-07-06 08:00] VITALS: BP 127/54
--- NOTE | 2022-07-06 08:00 | NUR ---
Patient's Plan of Care was discussed and reviewed with EDGAR: ALIS
--- NOTE | 2022-07-06 08:18 | NUR ---
MD ORDERED BS CHECK SET.
[2022-07-06] MEDS ORDERED: DEXTROSE 50% 50 ML SYR IVP PRN (08:20)
[2022-07-06] MEDS ORDERED: INSULIN LISPRO SLIDING SCALE 100 UNITS/ML VIAL SUBQ PRN (08:20)
[2022-07-06 08:30] LABS: ANION GAP 11.6 (8-16); CARBON DIOXIDE 23.4 mmol/L (21-32); CHLORIDE 108 mmol/L (98-107); CREATININE 0.9 mg/dL (0.6-1.3); GLUCOSE 106 mg/dL (74-106); SODIUM SERUM 139 mmol/L (136-145); UREA NITROGEN, BLOOD 6 mg/dL (7-18)
[2022-07-06 08:32] LABS: HEMATOCRIT 23.4 % (36-52); HEMOGLOBIN 7.6 g/dL (12.0-18.0); MEAN CORPUSCULAR HEMOGLOBIN 29 pg (27-31); MEAN CORPUSCULAR HGB CONC 33 g/dL (33-37); MEAN CORPUSCULAR VOLUME 89.9 fL (80-94); PLATELET COUNT (AUTO) 123 K/uL (140-450); WHITE BLOOD COUNT (AUTO) 15.9 K/uL (4.8-10.8)
[2022-07-06] MEDS: MAGNESIUM OXIDE 400 MG TAB PO SCH (09:31)
--- NOTE | 2022-07-06 09:34 | NUR ---
ADMINISTERED SCHEDULED MORNING MEDS. PT STATED HIS LAST BM WAS A WEEK AGO. ADMINISTERED PRN COLACE. NON-ADMIT HEPARIN FOR PLATELET 135. PT TEACHING ABOUT MED GIVEN. PT VERBALIZED UNDERSTANDING. WILL CONTINUE TO MONITOR.
[2022-07-06] MEDS: VANCOMYCIN HCL 1.25 GM in DEXTROSE 5% 250 ML IV SCH (09:43)
[2022-07-06 10:08] LABS: EOSINOPHILS % (MANUAL) 2 % (0-4); LYMPHOCYTES % (MANUAL) 25 % (20-46); MONOCYTES % (MANUAL) 8 % (5-12)
[2022-07-06] MEDS: BLOOD GLUCOSE MONITORING 1 DEV DEV FS SCH ×3 (12:25→21:39)
--- NOTE | 2022-07-06 12:25 | NUR ---
BLOOD SUGAR CHECK DONE. BS 95. COVID PCR SWAB DONE AND SPECIMEN SENT TO LAB.
[2022-07-06] MEDS: GAUZE TP SCH (12:26)
--- NOTE | 2022-07-06 12:26 | NUR ---
WOUND DRESSING CHANGE DONE. PT TOLERATED WELL. WILL CONTINUE TO MONITOR.
[2022-07-06] MEDS: SKINTEGRITY HYDROGEL TP SCH (13:42)
--- NOTE | 2022-07-06 15:39 | NUR ---
COMPLAINS OF PAIN, MORPHINE PRN GIVEN AT THIS TIME. WILL CONTINUE TO MONITOR.
[2022-07-06 16:00] VITALS: BP 144/68
--- NOTE | 2022-07-06 16:39 | NUR ---
BLOOD GLUCOSE CHECK DONE. BS 114. NO INSULIN COVERAGE ADMINISTERED. REASSESSED PT PAIN. PT STATED DECREASE PAIN TO 2/10.
--- NOTE | 2022-07-06 18:24 | NUR ---
DID ROUNDS. PT SITTING IN BED, EATING DINNER. NO DISTRESS NOTED. DENIES PAIN. CALL LIGHT WITHIN REACH. SAFETY PRECAUTIONS IN PLACE. WILL CONTINUE TO MONITOR.
--- NOTE | 2022-07-06 19:24 | NUR ---
ENDORSED PT TO JOINT SUPERVISOR NURSE FOR CONTINUITY OF CARE. ALL NEEDS MET THROUGHOUT SHIFT. PT IS STABLE.
--- NOTE | 2022-07-06 19:25 | NUR ---
RECEIVED REPORT FROM ALIS HERNÁNDEZ, PATIENT WAS STABLE DURING SHIFT CHANGE. PATIENT WAS NOTED ASLEEP. PATIENT HAS NO NOTED S/S OF PAIN AT THIS TIME. NO NOTED RESPIRATORY DISTRESS. SIDE RAILS UP X 3 FOR SAFETY AND COMFORT. CALL LIGHT WITHIN REACH FOR ALL ASSISTANCE AND NEEDS. NURSING WILL FREQUENT HIS ROOM FOR ANTICIPATED ASSISTANCE. [email or web address]
--- NOTE | 2022-07-06 19:30 | NUR ---
Patient's Plan of Care was discussed and reviewed with EDGAR DHILLON
--- NOTE | 2022-07-06 21:45 | NUR ---
PATIENT WAS EASILY AROUSED WHEN HIS NAME WAS CALLED FOR ACCUCHECK. NOTED BLOOD SUGAR WAS 108. NO NOTED S/S OF HYPER/HYPOGLYCEMIA. PATIENT WAS ABLE TO VERBALIZE TO NURSING HE HAS NO NOTED PAIN/DISCOMFORTS AT THIS TIME. CHEST IS RISING AND FALLING WITHOUT DISTRESS. PATIENT WAS KEPT CLEAN AND DRY AT THIS TIME. CALL LIGHT WITHIN REACH FOR ASSISTANCE AND HELP. [email or web address]
--- NOTE | 2022-07-06 21:50 | NUR ---
PATIENT REMAINS IN THE BED RESTING. KEPT CLEAN AND DRY. HEAD OF BED ELEVATED WHILE FEEDING IS ON. SIDE RAILS UP X 3. PATIENT IS NON-VERBAL. CALL LIGHT IN REACH FOR TV ENTERTAINMENT AND MENTAL STIMULATION. NURSING WILL FREQUENT THIS ROOM FOR ASSISTANCE. [email or web address]
--- NOTE | 2022-07-06 22:20 | NUR ---
ADMINISTERED MORPHINE FOR PATIENT FOR 8/ PAIN. PATIENT TOLERATED MEDICATION WELL. ALSO PROVIDED PATIENT A WARM BLANKET. PATIENT WAS LYING SEMI FOWLERS. BREATHING WAS NORMAL WITH SYMMETRICAL RISE AND FALL OF CHEST. BED WAS IN LOWEST POSITION, WHEELS LOCKED, CALL LIGHT IN PLACE. WILL CONTINUE TO OBSERVE PATIENT.
--- NOTE | 2022-07-06 23:34 | NUR ---
PATIENT IN BED ASLEEP. CHANGED OUT IV FLUIDS. PATIENT RECEIVED PAIN PRN PER REQUEST. MEDICATION WAS EFFECTIVE. CHEST NOTED RISING AND FALLING EVENLY WITHOUT DISTRESS. NO NOTED S/S PF PAIN/DISCOMFORT. SIDE RAILS UP X 3 FOR SAFETY AND COMFORT. CALL LIGHT WITHIN REACH. [email or web address]
[2022-07-07] MEDS: PIPERACILLIN/TAZOBACTAM 3.375 GM in DEXTROSE 5% 50 ML IV SCH ×4 (00:44→17:49)
--- NOTE | 2022-07-07 00:47 | NUR ---
GAVE ZOSYN TO PATIENT. PATIENT WAS SLEEPING. BREATHING WAS NORMAL WITH SYMMETRICAL RISE AND FALL OF CHEST. WILL CONTINUE TO OBSERVE PATIENT.
--- NOTE | 2022-07-07 01:24 | NUR ---
PATIENT IN BED ASLEEP. CHEST RISING AND FALLING WITHOUT DISTRESS. NO NOTED S/S OF PAIN/DISCOMFORT. CALL LIGHT WITHIN REACH. SIDERAILS UP X 3. [email or web address]
[2022-07-07 04:00] VITALS: BP 137/69
--- NOTE | 2022-07-07 04:27 | NUR ---
PATIENT COMPLAINED OF PAIN TO HIS BACK, COVERING RN WAS NOTIFIED. NO NOTED RESPIRATORY DISTRESS. CALL LIGHT WITHIN REACH. SIDE RAILS UP X 3. [email or web address]
[2022-07-07] MEDS: MORPHINE SULFATE 2 MG/ML SYR IVP PRN ×2 (04:30→10:45)
--- NOTE | 2022-07-07 04:40 | NUR ---
PATIENT INDICATED PAIN 05/29. BP IS 137/68, HR IS 69. ADMINISTERED MORPHINE FOR PAIN ORDERED BY PHYSICIAN. PATIENT'S BREATHING IS NORMAL WITH SYMMETRICAL RISE AND FALL OF CHEST. BED IS IN LOWEST POSITION, WHEELS LOCKED, CALL LIGHT IN PLACE. WILL CONTINUE TO OBSERVE.
--- NOTE | 2022-07-07 05:53 | NUR ---
PATIENT WAS CLEANED BY NURSING AND AUTOMOBILE RENTAL AGENT. NURSING NOTED PATIENT WAS CRYING BECAUSE HE WANT TO LEAVE SOON. NURSING GAVE EDUCATION ON POSSIBLE DISCHARGE SOON. PATIENT STOPPED CRYING AND RESTED IN HIS BED. NURSING WILL ENDORSE TO AM SHIFT TO FOLLOW UP WITH SUPERVISOR FINISHING ROOM. [email or web address]
--- NOTE | 2022-07-07 06:55 | NUR ---
GAVE ZOSYN IVPB. PATIENT WAS SLEEPING. BREATHING WAS NORMAL, WITH SYMMETRICAL RISE AND FALL OF CHEST. WILL CONTINUE TO OBSERVE.
--- NOTE | 2022-07-07 07:22 | NUR ---
ENDORSED PATIENT TO FERN HERNÁNDEZ, PATIENT WAS STABLE DURING SHIFT REPORT. [email or web address]
--- NOTE | 2022-07-07 07:23 | NUR ---
RECEIVED REPORT FROM DIRECTOR FUNDRAISING NURSE FOR CONTINUITY OF CARE. PT IN BED RESTING AT THIS TIME. RESPIRATIONS ARE EVEN AND UNLABORED ON ROOM AIR. NO SIGNS OF DISTRESS NOTED. NO SIGNS OF PAIN OR DISCOMFORT NOTED. PT IS ALERT AND ORIENTED X4, ABLE TO VERBALIZE NEEDS, ABLE TO FOLLOW COMMANDS. PT IS ON CCHO 60 GRAMS DIET. PT HAS HX OF R ABOVE THE KNEE AMPUTATION. PT HAS NOTED WOUNDS TO L FOOT, SACRUM, AND BILAT HIP DRESSINGS. PT HAS IV TO L WRIST, 22G WITH NS @ 100ML/HR RUNNING. CALL LIGHT WITHIN REACH. ALL SAFETY MEASURES IN PLACE. WILL CONTINUE TO MONITOR.
[2022-07-07] MEDS: BLOOD GLUCOSE MONITORING 1 DEV DEV FS SCH ×4 (07:26→20:33)
[2022-07-07 08:00] VITALS: BP 143/68
--- NOTE | 2022-07-07 08:00 | NUR ---
Patient's Plan of Care was discussed and reviewed with CNC FIELD SERVICE ENGINEER: FERN
[2022-07-07] MEDS: MAGNESIUM OXIDE 400 MG TAB PO SCH (09:16)
--- NOTE | 2022-07-07 09:18 | NUR ---
MEDICATION HEPARIN NOT GIVEN, HELD, NO LABS AND PLATELETS TRENDING DOWN. MEDICATION MAG OX PO ADMINISTERED. EDUCATED PT ON MEDS ADMINISTERED. WILL CONTINUE TO MONITOR.
[2022-07-07 09:54] LABS: BASOPHILS # (AUTO) 0.2 K/uL (0.00-0.22); BASOPHILS % (AUTO) 1.3 % (0.0-2.0); EOSINOPHILS # (AUTO) 0.2 K/uL (0-0.4); EOSINOPHILS % (AUTO) 1.2 % (0.0-4.0); HEMATOCRIT 26.8 % (36-52); HEMOGLOBIN 8.6 g/dL (12.0-18.0); LYMPHOCYTES # (AUTO) 4.5 K/uL (2.0-11.5); LYMPHOCYTES % (AUTO) 27.8 % (20.5-51.1); MEAN CORPUSCULAR HEMOGLOBIN 29 pg (27-31); MEAN CORPUSCULAR HGB CONC 32 g/dL (33-37); MEAN CORPUSCULAR VOLUME 91.6 fL (80-94); MONOCYTES # (AUTO) 1.1 K/uL (0.8-1.0); MONOCYTES % (AUTO) 6.5 % (1.7-9.3); NEUTROPHILS # (AUTO) 10.2 K/uL (1.8-7.7); NEUTROPHILS % (AUTO) 63.2 % (42.2-75.2); PLATELET COUNT (AUTO) 140 K/uL (140-450); RED BLOOD CELL COUNT(AUTO) 2.92 MIL/uL (4.20-6.10); RED CELL DISTRIBUTION WIDTH 23.4 % (11.6-13.7); WHITE BLOOD COUNT (AUTO) 16.2 K/uL (4.8-10.8)
[2022-07-07 10:07] LABS: ALBUMIN 1.6 g/dL (3.4-5.0); ANION GAP 11.8 (8-16); ASPARTATE AMINOTRANSFERASE 25 U/L (15-37); CARBON DIOXIDE 26.5 mmol/L (21-32); CHLORIDE 107 mmol/L (98-107); GLUCOSE 117 mg/dL (74-106); POTASSIUM 4.3 mmol/L (3.5-5.1); SODIUM SERUM 141 mmol/L (136-145); TOTAL BILIRUBIN 0.3 mg/dL (0.0-1.0); UREA NITROGEN, BLOOD 8 mg/dL (7-18)
[2022-07-07] MEDS: NACL 0.9% 1,000 ML IV SCH ×3 (10:44→20:00)
[2022-07-07] MEDS: VANCOMYCIN HCL 1.25 GM in DEXTROSE 5% 250 ML IV SCH (10:45)
--- NOTE | 2022-07-07 10:46 | NUR ---
PT COMPLAINING OF PAIN, STATES PAIN IS 6/10. MEDICATED PER MD ORDERS.
--- NOTE | 2022-07-07 10:53 | NUR ---
PRN PAIN MEDICATION ADMINISTERED PER MD ORDER, WALTER ABX ADMINISTERED PER MD ORDER. PT TOLERATED ADMINISTRATION. ALL SAFETY MEASURES IN PLACE, CALL LIGHT WITHIN REACH. WILL CONTINUE TO MONITOR.
--- NOTE | 2022-07-07 11:27 | NUR ---
PT BLOOD GLUCOSE WAS 109. NO INSULIN COVERAGE NEEDED PER SLIDING SCALE.
--- NOTE | 2022-07-07 11:46 | NUR ---
WENT TO RE-ASSESS PT FOR PAIN. PT IN BED RESTING AT THIS TIME. RESPIRATIONS ARE EVEN AND UNLABORED. NO SIGNS OF PAIN OR DISCOMFORT AT THIS TIME.
[2022-07-07] MEDS ORDERED: LACTULOSE 20 GM/30 ML UDC PO SCH (12:40)
[2022-07-07] MEDS: SKINTEGRITY HYDROGEL TP SCH (13:09)
[2022-07-07] MEDS: GAUZE TP SCH (13:09)
--- NOTE | 2022-07-07 13:16 | NUR ---
WENT TO PT ROOM TO ASSIST WITH CHANGING AND REPOSITIONING. PT REFUSED AT THIS TIME. WILL ATTEMPT AGAIN AT A LATER TIME.
[2022-07-07] MEDS: POLYETHYLENE GLYCOL 17 GM/PKT PO SCH ×2 (13:18→20:33)
[2022-07-07] MEDS ORDERED: HYDROcodone/APAP 5/325 MG 1 TAB TAB PO PRN (15:20)
--- NOTE | 2022-07-07 15:33 | NUR ---
PT COMPLAINING OF PAIN. STATES PAIN IS 5/10. MEDICATED. WILL RE-ASSESS PT PAIN LEVEL.
[2022-07-07 16:00] VITALS: BP 152/76
--- NOTE | 2022-07-07 16:27 | NUR ---
PT BLOOD GLUCOSE WAS 90. NO INSULIN NEEDED PER SLIDING SCALE.
--- NOTE | 2022-07-07 16:31 | NUR ---
WENT TO RE-ASSESS PT PAIN LEVEL. PT SLEEPING AT THIS TIME. NO SIGNS OF DISTRESS NOTED. NO COMPLAINTS OF PAIN. WILL CONTINUE TO MONITOR.
--- NOTE | 2022-07-07 19:01 | NUR ---
ENDORSED PT TO CUTTING MACHINE FIXER NURSE FOR CONTINUITY OF CARE. PT IS STABLE.
--- NOTE | 2022-07-07 19:05 | NUR ---
RECEIVED REPORT FROM DAY SHIFT NURSE FOR CONTINUITY OF CARE.PT IS ALERT AND ORIENTED X4, ABLE TO VERBALIZE NEEDS, RESPIRATIONS ARE EVEN AND UNLABORED ON ROOM AIR. NO SIGNS OF DISTRESS NOTED. PT HAS HX OF R ABOVE THE KNEE AMPUTATION. PT HAS NOTED WOUNDS TO L FOOT, L KNEE, SACRUM, AND BILAT HIP DRESSINGS, DRY AND INTACT. PT HAS IV TO L WRIST, 22G WITH NS @ 100ML/HR RUNNING. CALL LIGHT WITHIN REACH. ALL SAFETY MEASURES IN PLACE. WILL CONTINUE TO MONITOR.
[2022-07-07] MEDS: MORPHINE SULFATE 4 MG/ML SYR IVP PRN (20:32)
--- NOTE | 2022-07-07 21:00 | NUR ---
SCHEDULED MEDICATIONS GIVEN. PT TOLERATED WELL. PT COMPLAINED OF 8/10 BACK AND ABDOMINAL PAIN. PRN PAIN MEDICATION GIVEN. BLOOD SUGAR WAS 126. NO INSULIN COVERAGE NEEDED. ALL NEEDS MET. SAFETY PRECAUTIONS IN PLACE.CALL LIGHT WITHIN REACH. WILL CONTINUE TO MONITOR.
[2022-07-08] VITALS: BP 111/59
--- NOTE | 2022-07-08 | NUR ---
SCHEDULED MEDICATIONS GIVEN. PT TOLERATED WELL. WILL CONTINUE TO MONITOR.
[2022-07-08] MEDS: PIPERACILLIN/TAZOBACTAM 3.375 GM in DEXTROSE 5% 50 ML IV SCH ×3 (00:33→12:25)
[2022-07-08] MEDS: NACL 0.9% 1,000 ML IV SCH ×2 (00:37→16:29)
--- NOTE | 2022-07-08 02:39 | NUR ---
PT ASLEEP. VISIBLE CHEST RISE AND FALL NOTED. NO DISTRESS NOTED. ALL PRECAUTIONS IN PLACE. WILL CONTINUE TO MONITOR.
[2022-07-08] MEDS: MORPHINE SULFATE 4 MG/ML SYR IVP PRN ×3 (06:21→16:40)
[2022-07-08] MEDS: BLOOD GLUCOSE MONITORING 1 DEV DEV FS SCH ×3 (06:41→16:28)
--- NOTE | 2022-07-08 07:30 | NUR ---
RECEIVED REPORT FROM NIGHTSHIFT NURSE. PT A/O X4. ABLE TO MAKE NEEDS KNOWN. STATES NO PAIN AT THIS TIME. RESTING COMFORTABLY WITH HOB ELEVATED. NO SOB OR RESPIRATORY DISTRESS. R BKA. NS @ 100 ML/HR ON R HAND #20. NEEDS ALL MET AT THIS TIME. ITEMS/CALL LIGHT WITHIN REACH. ALL SAFETY MEASURES IN PLACE.
[2022-07-08 08:00] VITALS: BP 142/66
[2022-07-08] MEDS: POLYETHYLENE GLYCOL 17 GM/PKT PO SCH ×2 (08:53→08:59)
[2022-07-08] MEDS: MAGNESIUM OXIDE 400 MG TAB PO SCH (08:53)
[2022-07-08] MEDS: VANCOMYCIN HCL 1.25 GM in DEXTROSE 5% 250 ML IV SCH (10:04)
[2022-07-08] MEDS: GAUZE TP SCH (12:25)
[2022-07-08] MEDS: SKINTEGRITY HYDROGEL TP SCH (12:25)
[2022-07-08] MEDS ORDERED: LACT1.4C PO (13:54)
[2022-07-08] MEDS ORDERED: AMOX-999 PO (13:54)
[2022-07-08] MEDS ORDERED: DOCU-299 PO (13:54)
[2022-07-08] MEDS ORDERED: LEVO-481 PO (13:54)
--- NOTE | 2022-07-08 15:31 | NUR ---
RECEIVED CALL FROM SHWETA FROM [employer] AND STATES PT REPORT HASN'T BEEN GIVEN OR ROOM NUMBER PT IS GOING TO. CONTACTED [facility]. REPORT GIVEN TO RADHA FROM [facility]. CONTACTED [employer] AND SPOKE WITH SHWETA. SHWETA SULLIVAN CANNOT ROCK CLIMBING TEAM MEMBER PATIENT. CONTACTED CM [facility] AND EXPLAINED THE SITUATION. CM WILL FOLLOW-UP.
[2022-07-08 15:43] VITALS: BP 142/66
--- NOTE | 2022-07-08 15:59 | NUR ---
SPOKE WITH IRA UGALDE AND SHE STATES [facility] WILL BE PICKING UP PT BETWEEN 17:30-18:30.
--- NOTE | 2022-07-08 16:30 | NUR ---
[facility] HERE TO PICKUP PT. PT DISCHARGE INSTRUCTIONS GIVEN. PT VERBALIZED UNDERSTANDING. IV DISCONTINUED, CATHETER INTACT, NO ACTIVE BLEEDING. PT STABLE. PT TRANSPORTED OUT VIA GURNEY.
== END 2022-07-08 17:40 | DRG 853 ==
LOC: MED 16:20 → MTU 21:54 → OBSVTOIN 07-01 09:19
PROVIDERS: ADMIT Family Medicine; ATTEND Family Medicine
PROC: 0Y9N3ZZ Drainage of Left Foot, Percutaneous Approach (ICD-10-PCS; 2022-06-30)
PROC: 0JB70ZZ Excision of Back Subcutaneous Tissue and Fascia, Open Approach (ICD-10-PCS; principal; 2022-07-06)
DX: A41.9 Sepsis, unspecified organism (principal); E43 Unspecified severe protein-calorie malnutrition; L89.154 Pressure ulcer of sacral region, stage 4; N17.0 Acute kidney failure with tubular necrosis; L03.116 Cellulitis of left lower limb; Z68.1 Body mass index [BMI] 19.9 or less, adult; L08.9 Local infection of the skin and subcutaneous tissue, unspecified; E11.51 Type 2 diabetes mellitus with diabetic peripheral angiopathy without gangrene; C61 Malignant neoplasm of prostate; L89.159 Pressure ulcer of sacral region, unspecified stage; S91.302A Unspecified open wound, left foot, initial encounter; S81.002A Unspecified open wound, left knee, initial encounter; X58.XXXA Exposure to other specified factors, initial encounter; J45.909 Unspecified asthma, uncomplicated; I10 Essential (primary) hypertension; Z85.46 Personal history of malignant neoplasm of prostate; Z87.891 Personal history of nicotine dependence; Z89.511 Acquired absence of right leg below knee; Z79.1 Long term (current) use of non-steroidal anti-inflammatories (NSAID); Z79.899 Other long term (current) drug therapy; Y93.89 Activity, other specified; Y92.89 Other specified places as the place of occurrence of the external cause; Y99.8 Other external cause status
CPT/HCPCS: 96365; 96375; 99285; G0378; 36415; 36430; 71045; 72192; 73630; 73700; 74018; 80048; 80053; 80202; 82948; 83036; 83605; 83735; 84484; 85025; 85610; 85651; 86140; 86886; 86900; 86901; 86920; 87040; 87070; 87075; 87102; 87186; 87205; 87635-QW; 88304; 93925; A6248; J0330; J1644; J1815; J2270; J2405; J2543; J2704; J3010; J3370; J7030; J7060; P9016; Q0092

== ENCOUNTER 2022-09-06 16:31 | Inpatient (IN) | payer OTHER, MEDICAID ==
[~2022-09-06] VITALS: Ht 175.3 cm; Wt 53.5 kg
[~2022-09-06 16:31] MED LIST: ACET-3114 PO; AMOX-999 PO; DOCU-299 PO; LACT1.4C PO; LEVO-481 PO; LISI-486 PO
[2022-09-06 16:33] VITALS: BP 101/59
[2022-09-06] MEDS ORDERED: MELA5SGL PO (17:03)
[2022-09-06] MEDS ORDERED: BEN10 PO (17:03)
[2022-09-06] MEDS ORDERED: HYDR-5080 PO (17:03)
[2022-09-06] MEDS ORDERED: ACET-2619 PO (17:03)
[2022-09-06] MEDS ORDERED: ASCO-786 PO (17:03)
[2022-09-06] MEDS ORDERED: BACL10TA4 PO (17:03)
[2022-09-06] MEDS ORDERED: FERR-149 PO (17:03)
--- NOTE | 2022-09-06 17:25 | NUR ---
BERRY AND FLU SWABS COLLECTED AND GIVEN TO CERAMIC COATERAUDREY RICHARDS.
[2022-09-06 17:42] LABS: BASOPHILS # (AUTO) 0.2 K/uL (0.00-0.22); EOSINOPHILS # (AUTO) 0.2 K/uL (0-0.4); EOSINOPHILS % (AUTO) 1.1 % (0.0-4.0); HEMATOCRIT 32.1 % (36-52); HEMOGLOBIN 10.7 g/dL (12.0-18.0); LYMPHOCYTES # (AUTO) 4.7 K/uL (2.0-11.5); LYMPHOCYTES % (AUTO) 29.4 % (20.5-51.1); MEAN CORPUSCULAR HEMOGLOBIN 31 pg (27-31); MEAN CORPUSCULAR HGB CONC 33 g/dL (33-37); MEAN CORPUSCULAR VOLUME 93.1 fL (80-94); MONOCYTES # (AUTO) 1.8 K/uL (0.8-1.0); NEUTROPHILS # (AUTO) 9.3 K/uL (1.8-7.7); NEUTROPHILS % (AUTO) 57.5 % (42.2-75.2); PLATELET COUNT (AUTO) 267 K/uL (140-450); RED BLOOD CELL COUNT(AUTO) 3.45 MIL/uL (4.20-6.10); RED CELL DISTRIBUTION WIDTH 21.3 % (11.6-13.7); WHITE BLOOD COUNT (AUTO) 16.1 K/uL (4.8-10.8)
[2022-09-06] MEDS ORDERED: VANCOMYCIN 1,000 MG in DEXTROSE 5% 250 ML IV ONE (17:50)
[2022-09-06] MEDS ORDERED: PIPERACILLIN/TAZOBACTAM 3.375 GM in DEXTROSE 5% 50 ML IV ONE (17:50)
[2022-09-06 17:55] LABS: BILIRUBIN,URINE NEGATIVE (NEGATIVE); BLOOD, URINE NEGATIVE (NEGATIVE); LEUKOCYTE ESTERASE ,URINE 1+ (NEGATIVE); NITRITE, URINE POSITIVE (NEGATIVE); UGLUCOSE NEGATIVE (NEGATIVE)
[2022-09-06 17:59] LABS: APPEARANCE,URINE HAZY (CLEAR)
--- NOTE | 2022-09-06 17:59 | NUR ---
AMBULANCE DRIVER BEDSIDE
[2022-09-06 18:00] LABS: COLOR,URINE YELLOW (YELLOW)
[2022-09-06] MEDS ORDERED: PIPERACILLIN/TAZOBACTAM 3.375 GM VIAL IV ONE (18:01)
[2022-09-06 18:14] LABS: RBC,URINE NONE SEEN /HPF (0-5); WBC,URINE 80-100 /HPF (0-5)
[2022-09-06 18:21] LABS: ALBUMIN 2.3 g/dL (3.4-5.0); ANION GAP 15.7 (8-16); ASPARTATE AMINOTRANSFERASE 163 U/L (15-37); CARBON DIOXIDE 24.6 mmol/L (21-32); CHLORIDE 98 mmol/L (98-107); CREATININE 1.3 mg/dL (0.6-1.3); GLUCOSE 107 mg/dL (74-106); POTASSIUM 4.3 mmol/L (3.5-5.1); SODIUM SERUM 134 mmol/L (136-145); TOTAL BILIRUBIN 0.4 mg/dL (0.0-1.0); UREA NITROGEN, BLOOD 19 mg/dL (7-18)
--- NOTE | 2022-09-06 18:32 | NUR ---
Patient noted to have existing wounds upon arrival to ER. Photos taken of wound and placed in chart. Wound covered with dressing. Physician informed.
[2022-09-06] MEDS ORDERED: NACL 0.9% 500 ML IV ONE (18:35)
[2022-09-06] MEDS ORDERED: VANCOMYCIN 1,000 MG VIAL ONE (18:49)
--- NOTE | 2022-09-06 19:06 | NUR ---
72/M JACQUELYN FROM [facility]. PER EMS STAFF CALLED 911 STATING PATIENT C/O RIGHT SIDED BODY AND ABDOMINAL PAIN X3 WEEKS, STATES RECEIVING FLU SHOT 3 WEEKS AGO AND BELIEVES IT IS RELATED. STAFF REPORTS FEVER AND DECREASED O2 SATURATION TODAY. EMS STATES ON SCENE PATIENTS TEMP WAS 101.4 AND O2 94% ON ROOM AIR. UPON ARRIVAL PATIENTS ORAL TEMP 99.1, O2 SATURATION 93% ON ROOM, DENIES SOB, COUGH, CP. UPON ARRIVAL PATIENT PLACED IN GOWN ON BEDSIDE OPTICAL GOODS DRILLING MACHINE OPERATOR, DR. LEAHY AWARE OF PATIENT STATUS.
--- NOTE | 2022-09-06 19:25 | NUR ---
Pt report given to MARI SOLARES. Transfer of care at this time.
--- NOTE | 2022-09-06 19:47 | NUR ---
PT TAKEN TO CT
--- NOTE | 2022-09-06 21:00 | NUR ---
Patient A/Ox4, resting in bed, chest rise and fall symmetrical, no c/o of pain. Addendum: 09/07/22 at 0100 by [id number] Patient A/Ox4, resting in bed, chest rise and fall symmetrical, no c/o of pain, patient laying semi fowlers position and on left side pillow supported.
--- NOTE | 2022-09-06 22:45 | NUR ---
Patient A/Ox4, resting in bed, chest rise and fall symmetrical, no c/o of pain. Addendum: 09/07/22 at 0100 by [id number] Patient A/Ox4, resting in bed, chest rise and fall symmetrical, no c/o of pain, patient laying semi fowlers position and on right side pillow supported.
[2022-09-06] MEDS ORDERED: DOCUSATE SODIUM 100 MG GELCAP PO PRN (23:15)
[2022-09-06] MEDS ORDERED: POTASSIUM CHLORIDE 10 MEQ TABER PO PRN (23:15)
[2022-09-06] MEDS ORDERED: ZOLPIDEM 5 MG TAB PO PRN (23:15)
[2022-09-06] MEDS ORDERED: guaiFENesin DM 200/20 MG-10 ML 10 ML UDC PO PRN (23:15)
[2022-09-06] MEDS ORDERED: ONDANSETRON 4 MG/2 ML VIAL IM/IVP PRN (23:15)
[2022-09-06] MEDS ORDERED: ALBUTEROL SULFATE/IPRATROPIU 3 ML SOL IH PRN (23:15)
[2022-09-06] MEDS ORDERED: SODIUM PHOSPHATE 118 ML ENEM RC SCH (23:20)
[2022-09-06 23:43] LABS: PROTHROMBIN TIME 10.8 secs (10.8-13.4)
--- NOTE | 2022-09-06 23:50 | NUR ---
Patient A/Ox4, resting in bed, chest rise and fall symmetrical, no c/o of pain. Addendum: 09/07/22 at 0101 by [id number] Patient A/Ox4, resting in bed, chest rise and fall symmetrical, no c/o of pain, patient laying semi fowlers position and on left side pillow supported.
[2022-09-06 23:57] LABS: CHOL/HDL RATIO 3.5 (1-4.5); FREE T4 (FREE THYROXINE) 1.15 ng/dL (0.76-1.46); MAGNESIUM 1.9 mg/dL (1.8-2.4); PHOSPHORUS 4.2 mg/dL (2.5-4.9); THYROID STIMULATING HORMONE 1.8 uIU/mL (0.34-3.74)
[2022-09-07] MEDS: NACL 0.9% 1,000 ML IV SCH ×3 (00:03→17:45)
--- NOTE | 2022-09-07 00:10 | NUR ---
Patient A/Ox4, resting in bed, chest rise and fall symmetrical, no c/o of pain. Addendum: 09/07/22 at 0101 by [id number] Patient A/Ox4, resting in bed, chest rise and fall symmetrical, no c/o of pain, patient laying semi fowlers position and on right side pillow supported.
--- NOTE | 2022-09-07 00:36 | NUR ---
Note undone in [facility] - 09/07/22 at 100 by [id number] Patient will be admitted to care of Telemetry Nurse Grazyna SOLARES. Admited to telemetry. Will go to room 105A. Belongings list completed. Report to Telemetry Nurse Grazyna RN, Telemetry Nurse Grazyna RN verbalized understanding of report, no further questions from Telemetry Nurse Grazyna RN. Patient safely transferred to bed. Addendum: 09/07/22 at 010 by [id number] Amendment undone in [facility] - 09/07/22 at 010 by [id number] Patient A/Ox4, resting in bed, chest rise and fall symmetrical, no c/o of pain, patient laying semi fowlers position and on left side pillow supported.
--- NOTE | 2022-09-07 00:36 | NUR ---
Patient will be admitted to care of Telemetry Nurse Grazyna RN. Admited to telemetry. Will go to room 105A. Belongings list completed. Report to Telemetry Nurse Grazyna RN, Telemetry Nurse Grazyna RN verbalized understanding of report, no further questions from Telemetry Nurse Grazyna RN. Patient safely transferred to bed.
[2022-09-07 00:45] VITALS: BP 129/56
--- NOTE | 2022-09-07 00:50 | NUR ---
GET THE REPORT FROM ER NURSE MARI, PATIENT IS LYING ON BED, PATIENT IS ALERT ORIENTED X4, NO ANY COMPLAIN OF PAIN OR SOB AT THIS TIME,ALL FALL PRECAUTION MEASURE ARE IN PLACE, ALL SCHEDULE MEDICATION IS GIVEN S PER DOCTOR ORDER, VITAL SIGN IS WITHIN THE NORMAL RANGE, CALL LIGHT IS WITHIN THE REACH, WILL CONTINUE TO MONITOR PATIENT,
[2022-09-07] MEDS ORDERED: PIPERACILLIN/TAZOBACTAM 3.375 GM VIAL IV ONE ×2 (01:15→04:45)
[2022-09-07] MEDS: PIPERACILLIN/TAZOBACTAM 3.375 GM in DEXTROSE 5% 50 ML IV SCH ×5 (01:28→23:39)
[2022-09-07 04:00] VITALS: BP 124/70
--- NOTE | 2022-09-07 04:13 | NUR ---
VITAL SIGN IS WITHIN THE NORMAL RANGE,NO ANY COMPLAIN OF PAIN AT THIS TIME, PATIENT IS LYING ON BED, REPOSITION PATIENT, CALL LIGHT IS WITHIN THE REACH, WILL CONTINUE TO MONITOR PATIENT.
[2022-09-07] MEDS: HYDROcodone/APAP 7.5/325 MG 1 TAB PO PRN ×3 (05:22→15:32)
--- NOTE | 2022-09-07 05:24 | NUR ---
PATIENT IS COMPLAINING OF PAIN IN ABDOMEN / , GAVE NORCO 7.5/325MG PO PRN PER DOCTOR ORDER,VITAL SIGN IS WITHIN THE NORMAL RANGE, CALL LIGHT IS WITHIN THE REACH, WILL CONTINUE TO MONITOR PATIENT.
[2022-09-07 06:50] LABS: HEMATOCRIT 28.1 % (36-52); HEMOGLOBIN 9.2 g/dL (12.0-18.0); MEAN CORPUSCULAR HEMOGLOBIN 31 pg (27-31); MEAN CORPUSCULAR HGB CONC 33 g/dL (33-37); MEAN CORPUSCULAR VOLUME 94.4 fL (80-94); PLATELET COUNT (AUTO) 250 K/uL (140-450); RED BLOOD CELL COUNT(AUTO) 2.98 MIL/uL (4.20-6.10); RED CELL DISTRIBUTION WIDTH 21.1 % (11.6-13.7); WHITE BLOOD COUNT (AUTO) 13.2 K/uL (4.8-10.8)
[2022-09-07 07:10] LABS: ANION GAP 16.6 (8-16); CARBON DIOXIDE 24.4 mmol/L (21-32); CHLORIDE 97 mmol/L (98-107); CREATININE 1.6 mg/dL (0.6-1.3); GLUCOSE 126 mg/dL (74-106); SODIUM SERUM 134 mmol/L (136-145); UREA NITROGEN, BLOOD 21 mg/dL (7-18)
--- NOTE | 2022-09-07 07:12 | NUR ---
GAVE THE REPORT TO MORNING NURSE SURINDER FOR CONTINUOS OF CARE, PATIENT IS STABLE.
--- NOTE | 2022-09-07 07:15 | NUR ---
RECEIVED REPORT FROM MANAGER INTENSIVE CARE UNIT NURSE FOR CONTINUITY OF CARE. PATIENT AWAKE NOT ON ANY DISCOMFORT OR DISTRESS AT THIS TIME. IV SITE ON RIGHT FOREARM JOSELINE 20 RUNNING NS AT 80 CC/HOUR. ALL SAFETY MEASURE IN PLACE.
--- NOTE | 2022-09-07 07:20 | NUR ---
TOLERATED INCENTIVE SPIROMETRY THERAPY WELL WITHOUT ADVERSE REACTIONS NOTED ENCOURAGED PATIENT TO USE INCENTIVE SPIROMETRY EVERY 1-2 HOURS WHILE AWAKE
[2022-09-07] MEDS: ALBUTEROL SULFATE/IPRATROPIU 3 ML SOL IH SCH ×3 (07:34→19:45)
[2022-09-07 08:00] VITALS: BP 103/57
[2022-09-07 08:00] LABS: LYMPHOCYTES % (MANUAL) 27 % (20-46); MONOCYTES % (MANUAL) 13 % (5-12)
--- NOTE | 2022-09-07 08:00 | NUR ---
REVIEWED AND DISCUSSED PLAN OF CARE WITH EDGAR CADENA. PT IN STABLE CONDITION.
[2022-09-07 08:01] LABS: MYELOCYTES % 3 % (0-0)
--- NOTE | 2022-09-07 08:42 | NUR ---
SEEN AND EVALUATED BY DR. BORJA AT BED SIDE.
[2022-09-07] MEDS: lisinopriL 10 MG TAB PO SCH (09:33)
[2022-09-07] MEDS: PANTOPRAZOLE 40 MG TABEC PO SCH (09:34)
[2022-09-07] MEDS: BACLOFEN 10 MG TAB PO SCH ×3 (09:34→17:35)
--- NOTE | 2022-09-07 09:38 | NUR ---
PT TOOK ALL SCHEDULED MEDS AT THIS TIME. NO DISTRESS NOTED, TOLERATED WELL.
--- NOTE | 2022-09-07 10:10 | NUR ---
INFORMED PT HE HAS A SPECIMEN COLLECTION FOR SPUTUM. INFORMED PT REGARDING THE ORDERS AND GAVE INSTRUCTIONS FOR COLLECTION.
--- NOTE | 2022-09-07 11:58 | NUR ---
PATIENT HAS PODIATRY CONSULT TO DR. CRAIG DUE TO WORSENING LEFT FOOT WOUND. LEFT MESSAGE TO DR. CRAIG WAITING FOR RESPONSE.
[2022-09-07 12:00] VITALS: BP 107/53
--- NOTE | 2022-09-07 12:03 | NUR ---
PATIENT STILL NO SPUTUM NOT COUGHING AT THIS TIME.
--- NOTE | 2022-09-07 12:12 | NUR ---
DR. VICTOR SEEN PATIENT AT BED SIDE.
--- NOTE | 2022-09-07 12:33 | NUR ---
DR. CRAIG RESPONDED AND ORDER DOPPLER STUDY OF LEFT LOWER LEG.
--- NOTE | 2022-09-07 13:00 | NUR ---
TREATMENT DONE ON PATIENT LEFT FOOT AND LEFT BUTTOCKS PATIENT TOLERATED WELL.
--- NOTE | 2022-09-07 13:58 | NUR ---
PATIENT HAS BEEN SCREENED AND CATEGORIZED HIGH NUTRITION RISK. PATIENT WILL BE SEEN WITHIN 1-2 DAYS OF ADMISSION. 09/08/[address]
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
--- NOTE | 2022-09-07 15:18 | NUR ---
09/07/22 SULLY INITIAL ASSESSMENT COMPLETED PLEASE REFER TO NUTRITION ASSESSMENT UNDER CARE ACTIVITY FOR ESTIMATED NUTRITIONAL NEEDS. 1. CONTINUE CLEAR LIQUID DIET TOLERATED 2. RECOMMENDED ORAL SUPPLEMENTS FOR NUTRITION SUPPORT BUT PATIENT DECLINED. 3. IF/WHEN MEDICALLY APPROPRIATE, RECOMMEND REGULAR DIET PATIENT TOLERATES. 4. RD TO FOLLOW-UP 3-5 DAYS, MODERATE RISK REVIEWED BY DIXON DELATORRE RD Addendum: 09/10/22 at [address] SULLY SPOKE WITH RN ABOUT PT WOUNDS AND LOW PO INTAKE. SULLY RECOMMENDED ORAL SUPPLEMENTS AND RN AGREED. SULLY WILL ADD ENSURE 1XDAY AND PROSOURCE BID. WILL CONTINUE TO MONITOR. DIXON DELATORRE RD
[2022-09-07 16:00] VITALS: BP 119/60
--- NOTE | 2022-09-07 16:30 | NUR ---
US TECH CALLED THAT ULTRASOUND OF LEFT LEG UNABLE TO DO IT EVEN WITH PAIN MEDICATION DUE TO CONTRACTURED LEFT MESSAGE TO DR. CRAIG.
--- NOTE | 2022-09-07 18:00 | NUR ---
PATIENT COMPLAINING OF PAIN THAT [facility] IS NOT HELPING HIM REQUESTING FOR MORPHINE LEFT MESSAGE TO DR. BORJA WAITING FOR RESPONSE.
[2022-09-07] MEDS ORDERED: MORPHINE SULFATE 2 MG/ML SYR IVP PRN (18:35)
--- NOTE | 2022-09-07 19:23 | NUR ---
ENDORSED PT TO SUPERVISOR ERECTION SHOP NURSE FOR CONTINUITY OF CARE. PT IN STABLE CONDITION.
--- NOTE | 2022-09-07 19:24 | NUR ---
RECEIVED ENDORSEMENT FROM SURINDER HERNÁNDEZ AND HARRY BRAND LVN, PATIENT WAS STABLE DURING THE CHANGE OF SHIFT. PATIENT IS A TELEMETRY PATIENT ON OXYGEN TWO LITERS BREATHING EVENLY WITHOUT DISTRESS. NO NOTED PAIN AT THIS TIME. NO COMPLAINTS OF PAIN OR DISCOMFORT. PATIENT STILL HAS NOT EATEN HIS DINNER AT THIS TIME. INFORMED OT THE NEED FOR SPUTUM FOR THE LAB. PATIENT UNDERSTOOD. SIDE RAILS UP X 3 FOR SAFETY CALL LIGHT WITHIN REACH FOR ASSISTANCE. PATIENT IS AWARE ON HOW TO USE THE CALL LIGHT. [id number]
[2022-09-07 20:00] VITALS: BP 119/62
--- NOTE | 2022-09-07 20:00 | NUR ---
Patient's Plan of Care was discussed and reviewed with PROVISIONING ANALYST: ALEJO SANON
--- NOTE | 2022-09-07 23:59 | NUR ---
PATIENT WAS FED JELLO AND REMINDED OF SPUTUM COLLECTION. NURSING DID NOT NOTED ANY RESPIRATORY DISTRESS. NURSING WILL FREQUENT THE ROOM BECAUSE PATIENT DOES NOT USE CALL LIGHT NEEDED. [email or web address]
[2022-09-08] VITALS: BP 158/78
[2022-09-08] MEDS: ACETAMINOPHEN 325 MG TAB PO PRN (00:11)
--- NOTE | 2022-09-08 00:30 | NUR ---
PATIENT WAS GIVEN TYLENOL FOR HEADACHE AND SLEEPING PRN FOR SLEEP BECAUSE PATIENT WAS AWAKEN BY OTHER PATIENTS SCREAMING. NURSING WILL FREQUENT THIS ROOM FOR SAFETY AND ANTICIPATION OF NEEDS. NURSING WILL MONITOR FOR EFFECTIVENESS OF MEDICATION. [email or web address]
--- NOTE | 2022-09-08 01:15 | NUR ---
PATIENT IS IN BED RESTING. NO NOTED CRYING OR DISCOMFORT. NO NOTED RESPIRATORY DISTRESS. CALL LIGHT WITHIN REACH. [email or web address]
[2022-09-08 04:00] VITALS: BP 139/63
--- NOTE | 2022-09-08 05:50 | NUR ---
PATIENT WAS ABLE TO SLEEP. NO NOTED S/S OF PAIN/DISCOMFORT. NO NOTED RESPIRATORY DISTRESS. CALL LIGHT WITHIN REACH FOR ASSISTANCE. NURSING FREQUENT THIS ROOM FOR ANTICIPATED ASSISTANCE. [email or web address]
[2022-09-08] MEDS: PIPERACILLIN/TAZOBACTAM 3.375 GM in DEXTROSE 5% 50 ML IV SCH ×3 (06:09→18:11)
[2022-09-08 06:55] LABS: BASOPHILS % (AUTO) 0.3 % (0.0-2.0); EOSINOPHILS # (AUTO) 0.1 K/uL (0-0.4); EOSINOPHILS % (AUTO) 0.6 % (0.0-4.0); HEMATOCRIT 30.9 % (36-52); HEMOGLOBIN 10.1 g/dL (12.0-18.0); LYMPHOCYTES # (AUTO) 4.5 K/uL (2.0-11.5); MEAN CORPUSCULAR HEMOGLOBIN 31 pg (27-31); MEAN CORPUSCULAR HGB CONC 33 g/dL (33-37); MEAN CORPUSCULAR VOLUME 94.8 fL (80-94); MONOCYTES # (AUTO) 1.2 K/uL (0.8-1.0); MONOCYTES % (AUTO) 9.7 % (1.7-9.3); NEUTROPHILS # (AUTO) 6.7 K/uL (1.8-7.7); NEUTROPHILS % (AUTO) 53.4 % (42.2-75.2); PLATELET COUNT (AUTO) 293 K/uL (140-450); RED BLOOD CELL COUNT(AUTO) 3.26 MIL/uL (4.20-6.10); RED CELL DISTRIBUTION WIDTH 21.4 % (11.6-13.7); WHITE BLOOD COUNT (AUTO) 12.5 K/uL (4.8-10.8)
[2022-09-08] MEDS: ALBUTEROL SULFATE/IPRATROPIU 3 ML SOL IH SCH ×3 (07:09→19:04)
--- NOTE | 2022-09-08 07:10 | NUR ---
ENDORSED PATIENT TO HARRY RN, PATIENT WAS STABLE DURING SHIFT REPORT. [email or web address]
[2022-09-08 07:35] LABS: ANION GAP 14.5 (8-16); CARBON DIOXIDE 25.8 mmol/L (21-32); CHLORIDE 101 mmol/L (98-107); CREATININE 1.6 mg/dL (0.6-1.3); GLUCOSE 117 mg/dL (74-106); POTASSIUM 4.3 mmol/L (3.5-5.1); SODIUM SERUM 137 mmol/L (136-145); UREA NITROGEN, BLOOD 23 mg/dL (7-18)
[2022-09-08 08:00] VITALS: BP 110/48
--- NOTE | 2022-09-08 08:06 | NUR ---
received report from the night nurse, pt awake discussed POC, no sob 022L [place] ON.[id number]
[2022-09-08] MEDS ORDERED: NACL 0.9% 1,000 ML IV SCH (08:15)
[2022-09-08] MEDS ORDERED: MORPHINE SULFATE 2 MG/ML SYR IVP PRN (08:20)
[2022-09-08] MEDS: lisinopriL 10 MG TAB PO SCH (09:06)
[2022-09-08] MEDS: BACLOFEN 10 MG TAB PO SCH ×3 (09:06→17:00)
[2022-09-08] MEDS: PANTOPRAZOLE 40 MG TABEC PO SCH (09:06)
--- NOTE | 2022-09-08 10:15 | NUR ---
WOUND CARE EVALUATION NOTE: POC DISCUSSED WITH DR. WAYNE REQUEST VACULAR STUDY, VASCULAR/PODIATRY CONSULT FOR ISCHEMIA ULCER TO LEFT FOOT AND LEFT TOES. PT. ADMITTED WITH OLD HEALED SCAR TISSUE TO SACRALCOCCYX 5X6CM. POC DISCUSSED WITH PRIMARY RN. RECOMMENDATIONS: - SACRALCOCCYX COVER WITH FOAM DRESSING QD AND PRN IF SOILING -LEFT FOOT AND TOES WOUNDS APPLY MOIST BETADINE 4X4 DRESSING TO WOUND BED AND COVER WITH DRY DRESSING, WRAP WITH KERLIX ROLL LOOSELY QD AND PRN IF SOILING -OFFLOADING LEFT FOOT WITH HEEL RAISER -POSITIONING: TURN AND REPOSITION PATIENT Q 2H OR SOONER USE PILLOWS TO KEEP BONY PROMINENCES FROM DIRECT CONTACT WITH SURFACES USE REPOSITIONING WEDGES TO PROVIDE 30-DEGREE ANGLE FOR SIDE LYING POSITIONS OFFLOADING OR FOAM DRESSING TO ALL TUBING TO PREVENT MEDICAL DEVICES RELATED PRESSURE INJURY -RE-EVALUATING AND MANAGING INCONTINENCE MONITOR SKIN CONDITION DURING POSITION CHANGE DO NOT MASSAGE REDNESS, BONY PROMINENCES, DO NOT USE DONUT-TYPE DEVICES FREQUENT MARGARET-CARE AND PROVIDE BARRIER CREAMS PRN IF SOILING MOISTURE CONTROL BY OFFER BED OLIVA/URINAL /ABSORBENT PAD TO WICK AND HOLD MOISTURE. KEEP SKIN DRY AND PROTECT FROM FRICTION -MANAGE FRICTION/SHEAR/MOBILITY KEEP HOB AT THE LOWEST LEVEL OF ELEVATION NO MORE THAN 30 DEGREES UNLESS OTHERWISE CONTRAINDICATED USE LIFT SHEET OR TRANSFER DEVICE TO MOVE PATIENT AND PREVENT LATERAL SHEER. CONSIDER TRAPEZE IF APPROPRIATE PROTECT HEELS, ELBOWS BONY PROMINENCES WITH SKIN BERRIES OR FOAM DRESSING IF EXPOSED TO FRICTION OFFLOAD BILATERAL HEELS BY PLACING PILLOWS UNDER CALVES AT ALL TIMES, UNLESS OTHERWISE CONTRAINDICATED -PRESSURE REDISTRIBUTION SURFACE THERAPY KEHINDE ISOFLEX MATTRESS -NUTRITION: PLEASE FOLLOW RD RECOMMENDATIONS AND OFFER NUTRITION SUPPLEMENTS IF ORDERED.
[2022-09-08 12:00] VITALS: BP 137/70
[2022-09-08] MEDS: NACL 0.9% 1,000 ML IV SCH (12:56)
[2022-09-08] MEDS: HYDROcodone/APAP 5/325 MG 1 TAB TAB PO PRN ×2 (13:54→18:35)
[2022-09-08] MEDS: DEXT 5% /NACL 0.9% 1,000 ML IV SCH (14:45)
[2022-09-08] MEDS: CHLORHEXADINE GLUC 2% CLOTH TP SCH (14:50)
[2022-09-08] MEDS: MUPIROCIN CA NASAL 2% 1GM TUBE NS SCH (14:50)
[2022-09-08 16:00] VITALS: BP 133/73
[2022-09-08] MEDS: GAUZE TP SCH (16:00)
[2022-09-08] MEDS: FOAM DRESSING TP SCH (16:00)
--- NOTE | 2022-09-08 19:30 | NUR ---
RECEIVED BEDSIDE REPORT FROM DAY SHIFT RN FOR CONTINUITY OF CARE. PT IS CURRENTLY SLEEPING. PT IS A FEEDER. PT IS NOT IN ANY ACUTE DISTRESS. PT IS ON NC 2L. PT HAS RIGHT UPPER ARM 20 GAUGE. COMMUNICATION BOARD UPDATED. WILL CONTINUE TO MONITOR THE PT.
[2022-09-08 20:00] VITALS: BP 105/57
--- NOTE | 2022-09-08 21:14 | NUR ---
DR. CRAIG WENT TO SEE THE PT AND CHANGED DRESSING ON LEFT FOOT.
[2022-09-09] VITALS: BP 116/61
[2022-09-09] MEDS: PIPERACILLIN/TAZOBACTAM 3.375 GM in DEXTROSE 5% 50 ML IV SCH ×4 (00:16→18:56)
--- NOTE | 2022-09-09 00:21 | NUR ---
SCHEDULE MEDICATIONS GIVEN. NO ADVERSE REACTION NOTED. WILL CONTINUE TO MONITOR THE PT.
--- NOTE | 2022-09-09 01:44 | NUR ---
PT IS SLEEPING IN BED COMFORTABLY. PT NOT IN RESPIRATORY DISTRESS. BREATHING EVEN AND UNLABORED. IVF RUNNING PER MD ORDER. WILL CONTINUE TO MONITOR THE PT.
[2022-09-09] MEDS: DEXT 5% /NACL 0.9% 1,000 ML IV SCH ×2 (03:15→15:45)
--- NOTE | 2022-09-09 03:20 | NUR ---
PT IS SLEEPING IN BED COMFORTABLY. PT NOT IN RESPIRATORY DISTRESS. BREATHING EVEN AND UNLABORED. IVF RUNNING PER MD ORDER. WILL CONTINUE TO MONITOR THE PT.
[2022-09-09 04:00] VITALS: BP 115/67
[2022-09-09] MEDS: ACETAMINOPHEN 325 MG TAB PO PRN (04:03)
--- NOTE | 2022-09-09 04:16 | NUR ---
PT HAS A FEVER OF 100.7. PT REFUSED TYLENOL. ICE PACKS PROVIDED. WILL CONTINUE TO MONITOR THE PT.
--- NOTE | 2022-09-09 05:56 | NUR ---
PT TEMPERATURE REASSESSED. TEMPT IS 98.7. NO FEVER AT THIS TIME.
--- NOTE | 2022-09-09 07:14 | NUR ---
ENDORSED PT TO DAY SHIFT RN FOR CONTINUITY OF CARE. PT IS STABLE.
[2022-09-09 07:22] LABS: BASOPHILS % (AUTO) 0.4 % (0.0-2.0); EOSINOPHILS # (AUTO) 0.1 K/uL (0-0.4); EOSINOPHILS % (AUTO) 0.8 % (0.0-4.0); HEMATOCRIT 28.8 % (36-52); HEMOGLOBIN 9.5 g/dL (12.0-18.0); LYMPHOCYTES % (AUTO) 23.2 % (20.5-51.1); MEAN CORPUSCULAR HEMOGLOBIN 31 pg (27-31); MEAN CORPUSCULAR HGB CONC 33 g/dL (33-37); MONOCYTES % (AUTO) 11.4 % (1.7-9.3); NEUTROPHILS # (AUTO) 5.6 K/uL (1.8-7.7); NEUTROPHILS % (AUTO) 64.2 % (42.2-75.2); PLATELET COUNT (AUTO) 290 K/uL (140-450); RED BLOOD CELL COUNT(AUTO) 3.07 MIL/uL (4.20-6.10); RED CELL DISTRIBUTION WIDTH 21.2 % (11.6-13.7); WHITE BLOOD COUNT (AUTO) 8.7 K/uL (4.8-10.8)
--- NOTE | 2022-09-09 07:31 | NUR ---
GOT REPORT FROM THE NIGHT NURSE, PT SLEEPING NO SOB 022LNC ON ,IV FLUID INFUSING.[id number]
[2022-09-09 07:34] LABS: ANION GAP 15.4 (8-16); CARBON DIOXIDE 24.4 mmol/L (21-32); CHLORIDE 105 mmol/L (98-107); CREATININE 1.2 mg/dL (0.6-1.3); GLUCOSE 142 mg/dL (74-106); POTASSIUM 3.8 mmol/L (3.5-5.1); SODIUM SERUM 141 mmol/L (136-145); UREA NITROGEN, BLOOD 22 mg/dL (7-18)
[2022-09-09 08:00] VITALS: BP 116/70
[2022-09-09] MEDS: ALBUTEROL SULFATE/IPRATROPIU 3 ML SOL IH SCH ×3 (08:08→20:49)
[2022-09-09] MEDS: BACLOFEN 10 MG TAB PO SCH ×3 (08:23→17:54)
[2022-09-09] MEDS: PANTOPRAZOLE 40 MG TABEC PO SCH (08:24)
[2022-09-09] MEDS: HYDROcodone/APAP 5/325 MG 1 TAB TAB PO PRN ×3 (08:24→17:55)
[2022-09-09] MEDS: lisinopriL 10 MG TAB PO SCH (08:24)
[2022-09-09 12:00] VITALS: BP 95/53
[2022-09-09] MEDS: GAUZE TP SCH (13:00)
[2022-09-09] MEDS: CHLORHEXADINE GLUC 2% CLOTH TP SCH (14:50)
[2022-09-09] MEDS: MUPIROCIN CA NASAL 2% 1GM TUBE NS SCH (14:50)
[2022-09-09 16:00] VITALS: BP 101/57
--- NOTE | 2022-09-09 16:21 | NUR ---
DC PLANNING: PATIENT HAS A DC ORDER FOR TOMORROW 09/[address] [facility]. CALLED [facility] [phone] SPOKE WITH JESSENIA THE ADMIN STATED PATIENT CAN GO TO ROOM 1B. FOR TRANSPORT PLS CALL CALL A [facility] [phone] OPT 2 OR [phone]. CM TO FOLLOW Addendum: 09/12/22 at 1151 by Nafisa Mancera RN DC PLANNING: CALLED [facility] SPOKE WITH HJONY MOTA LEFT A DETAIL MESSAGE YESTERDAY AT 5 PM TO [phone] AND INITIATE A NEW RESERVATION AND PATIENT WILL BE PICKED UP AT 2 PM WITH [facility] GOING TO [facility] ROOM 1A .NOTIFIED DENITA FUENTES CM TO FOLLOW
--- NOTE | 2022-09-09 19:30 | NUR ---
RECEIVED BEDSIDE REPORT FROM DAY SHIFT RN FOR CONTINUITY OF CARE. PT IS SLEEPING IN BED COMFORTABLY. PT IS ON NC 2L SATING 97%. PT HAS RIGHT BKA. PT HAS DRESSING ON LEFT FOOT. PT HAS LEFT UPPER ARM 20 GAUGE RUNNING D5 NS 80 CC/HR. CALL LIGHT WITHIN REACH. ALL SAFETY MEASURES TAKEN. WILL CONTINUE TO MONITOR THE PT.
[2022-09-09 20:00] VITALS: BP 117/60
[2022-09-10] VITALS: BP 140/73
[2022-09-10] MEDS: PIPERACILLIN/TAZOBACTAM 3.375 GM in DEXTROSE 5% 50 ML IV SCH ×4 (00:13→17:41)
--- NOTE | 2022-09-10 00:15 | NUR ---
SCHEDULE MEDICATIONS GIVEN. NO ADVERSE REACTION NOTED. WILL CONTINUE TO MONITOR THE PT.
--- NOTE | 2022-09-10 00:23 | NUR ---
PT IS CRYING. PT DOES NOT VERBALIZE NEEDS. TRIED TO GIVE PT NORCO FOR PAIN. PT REFUSED. REPOSITION PT AND MADE HIM MORE COMFORTABLE.
--- NOTE | 2022-09-10 03:00 | NUR ---
PT WAS CLEANED AND CHANGED. PT HAD SMALL BM. DRESSING CHANGED ON LEFT BUTTOX AND LEFT FOOT.
[2022-09-10] MEDS: DEXT 5% /NACL 0.9% 1,000 ML IV SCH ×2 (03:44→17:40)
[2022-09-10 04:00] VITALS: BP 125/60
--- NOTE | 2022-09-10 07:05 | NUR ---
ENDORSED PT TO DAY SHIFT RN FOR CONTINUITY OF CARE. PT IS STABLE.
--- NOTE | 2022-09-10 07:30 | NUR ---
RECEIVED PT AWAKE ALERT AND ORIENTED X1 TO PERSON. ON O2 2L VIA N/C. ABD SOFT WITH ACTIVE BOWEL SOUNDS. INCONTINENT BOWEL AND BLADDER. PT WITH RIGHT BKA. PERIPHERAL IV 20 GAUGE ON LAC INTACT AND PATENT INFUSING D5NS@80ML/HR. 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 SAFETY PRECAUTIONS IN PLACE.
[2022-09-10] MEDS: ALBUTEROL SULFATE/IPRATROPIU 3 ML SOL IH SCH ×2 (07:48→18:52)
[2022-09-10 08:00] VITALS: BP 128/80
[2022-09-10] MEDS: BACLOFEN 10 MG TAB PO SCH ×3 (08:16→16:09)
[2022-09-10] MEDS: PANTOPRAZOLE 40 MG TABEC PO SCH (08:16)
[2022-09-10] MEDS: lisinopriL 10 MG TAB PO SCH (08:22)
--- NOTE | 2022-09-10 10:30 | NUR ---
ASSISTED PT IN FEEDING BREAKFAST. PT CONSUMED 75%.
[2022-09-10] MEDS ORDERED: ROC1PM IV (10:49)
[2022-09-10] MEDS ORDERED: ALBU3SOL83 IH (10:49)
[2022-09-10] MEDS ORDERED: METR-520 PO (10:49)
[2022-09-10] MEDS ORDERED: PANT40EC56 PO (10:49)
[2022-09-10 12:00] VITALS: BP 144/71
[2022-09-10] MEDS: GAUZE TP SCH (12:03)
[2022-09-10] MEDS: MUPIROCIN CA NASAL 2% 1GM TUBE NS SCH (14:24)
[2022-09-10] MEDS: CHLORHEXADINE GLUC 2% CLOTH TP SCH (14:25)
--- NOTE | 2022-09-10 14:59 | NUR ---
CALLED JESSENIA TO GIVE REPORT. HOWEVER, PER JESSENIA, SHE CANNOT ACCEPT PT DUE TO NO AUTHORIZATION FROM [facility]. JESSENIA GAVE PHONE NUMBER TO CLOTH MERCERIZER BACK TENDER TAMMI FROM [employer]: . CALLED NUMBER TO CHECK STATUS ON AUTHORIZATION, BUT NO ANSWER DUE TO CLOSED ON WEEKEND.
[2022-09-10 15:14] LABS: BASOPHILS # (AUTO) 0.1 K/uL (0.00-0.22); BASOPHILS % (AUTO) 0.5 % (0.0-2.0); EOSINOPHILS # (AUTO) 0.1 K/uL (0-0.4); EOSINOPHILS % (AUTO) 0.8 % (0.0-4.0); HEMATOCRIT 24.7 % (36-52); LYMPHOCYTES # (AUTO) 5.4 K/uL (2.0-11.5); LYMPHOCYTES % (AUTO) 42.6 % (20.5-51.1); MEAN CORPUSCULAR HEMOGLOBIN 31 pg (27-31); MEAN CORPUSCULAR HGB CONC 32 g/dL (33-37); MEAN CORPUSCULAR VOLUME 94.9 fL (80-94); NEUTROPHILS # (AUTO) 6.1 K/uL (1.8-7.7); NEUTROPHILS % (AUTO) 48.1 % (42.2-75.2); PLATELET COUNT (AUTO) 246 K/uL (140-450); RED CELL DISTRIBUTION WIDTH 20.8 % (11.6-13.7); WHITE BLOOD COUNT (AUTO) 12.6 K/uL (4.8-10.8)
[2022-09-10 15:33] LABS: ANION GAP 14.3 (8-16); CARBON DIOXIDE 23.9 mmol/L (21-32); CHLORIDE 111 mmol/L (98-107); CREATININE 1.1 mg/dL (0.6-1.3); GLUCOSE 153 mg/dL (74-106); POTASSIUM 3.2 mmol/L (3.5-5.1); SODIUM SERUM 146 mmol/L (136-145); UREA NITROGEN, BLOOD 17 mg/dL (7-18)
[2022-09-10 16:00] VITALS: BP 133/64
--- NOTE | 2022-09-10 19:20 | NUR ---
RECEIVED REPORT FROM NURSE REZA. PATIENT SLEEPING WITH HEAD OF BED ELEVATED. NO SOB. ON ROOM AIR. IVF D5NS RUNNING AT 80 MLS ON THE LAC. CALL LIGHT WITHIN REACH. ALL SAFETY PRECAUTIONS ARE IN PLACE.
[2022-09-10 20:00] VITALS: BP 154/70
[2022-09-11] VITALS: BP 139/68
[2022-09-11] MEDS: PIPERACILLIN/TAZOBACTAM 3.375 GM in DEXTROSE 5% 50 ML IV SCH ×2 (00:21→05:47)
--- NOTE | 2022-09-11 00:21 | NUR ---
ADMINISTERED ZOSYN ORDERED.
--- NOTE | 2022-09-11 04:43 | NUR ---
CHECK ON PATIENT, PT IS SLEEPING. RESPIRATION REGULAR WITH SYMMETRICAL RISE AND FALL OF THE CHEST. CALL LIGHT WITHIN REACH.
[2022-09-11] MEDS: DEXT 5% /NACL 0.9% 1,000 ML IV SCH ×2 (05:15→17:45)
--- NOTE | 2022-09-11 05:30 | NUR ---
PATIENT WAS CLEANED, CHANGED AND REPOSITIONED. NO DISTRESS.
[2022-09-11] MEDS: ALBUTEROL SULFATE/IPRATROPIU 3 ML SOL IH SCH ×3 (07:00→19:00)
--- NOTE | 2022-09-11 07:45 | NUR ---
WENT TO GIVE PT TX. HE IS SLEEPING. TX NOT GIVEN. NO DISTRESS NOTED.
--- NOTE | 2022-09-11 07:53 | NUR ---
GAVE REPORT TO MORNING SHIFT NURSE HA FOR CONTINUITY OF CARE.
[2022-09-11 08:00] VITALS: BP 145/67
[2022-09-11] MEDS: BACLOFEN 10 MG TAB PO SCH ×3 (09:00→12:15)
[2022-09-11] MEDS: PANTOPRAZOLE 40 MG TABEC PO SCH (09:39)
[2022-09-11] MEDS: lisinopriL 10 MG TAB PO SCH (09:39)
[2022-09-11] MEDS: FOAM DRESSING TP SCH (09:52)
[2022-09-11] MEDS ORDERED: PIPERACILLIN/TAZOBACTAM 3.375 GM in DEXTROSE 5% 50 ML IV SCH (12:00)
[2022-09-11] MEDS: GAUZE TP SCH (12:15)
--- NOTE | 2022-09-11 12:43 | NUR ---
GENESIS TO L FOOT DONE. PT TOLERATED WELL.
--- NOTE | 2022-09-11 12:51 | NUR ---
DC PLANNING: RN SPOKE WITH NATHAN, DIGITAL MARKETING INTERN NURSE FOR [facility]. VERBAL AUTH AND NUMBER GIVEN FOR PATIENT TO RETURN TO [facility] FOR IV ABX, WOUND CARE AND P.T.. AUTH NUMBER [id number]. TRANSPORT ARRANGED WITH CALL THE [facility], [facility] TIME 1600, AGENCY WILL CALL WITH NAME OF TRANSPORT COMPANY AND WILL CONFIRM TIME. CONFIRMATION NUMBER [id number]. RN SPOKE WITH JESSENIA FROM [facility], ROOM 1B STILL ASSIGNED, AUTH NUMBER FROM [facility] GIVEN TO HER. Addendum: 09/11/22 at 1638 by Angelita Mccullough CM DC PLANNING: RN FOLLOWED UP WITH CALL THE [facility] ([phone] OPT 4, OPT 1), TRANSPORT NOT SCHEDULED DUE TO "SYSTEM GLITCH", INFORMATION BEING RESUBMITTED FOR [facility], ETA AND VENDOR NOT YET IDENTIFIED. Addendum: 09/11/22 at 1936 by Angelita Mccullough CM DC PLANNING: PER CALL THE CAR THE TRANSPORT WAS CANCELLED BECAUSE MORE INFORMATION IS NEEDED FROM [facility] BUT WAS UNABLE TO BE MORE SPECIFIC.
[2022-09-11] MEDS: CHLORHEXADINE GLUC 2% CLOTH TP SCH (15:11)
[2022-09-11] MEDS: MUPIROCIN CA NASAL 2% 1GM TUBE NS SCH (15:11)
[2022-09-11 16:00] VITALS: BP 150/75
[2022-09-11 16:05] VITALS: BP 145/67
--- NOTE | 2022-09-11 19:00 | NUR ---
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 Dr Rabia do.
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
--- NOTE | 2022-09-11 22:00 | NUR ---
IV IS INFILTRATED. INSERTED NEW IV ON RIGHT FOREARM GAUGE 20. IV IS NOW PATENT AND INTACT. ALL SAFETY MEASURES IMPLEMENTED. BED IN LOW POSITION, BED WHEELS ON LOCKED AND CALL LIGHT WITHIN REACH.
[2022-09-12] VITALS: BP 154/74
--- NOTE | 2022-09-12 | NUR ---
PT IS SLEEPING. CHEST RISE AND FALL SYMMETRICALLY NOTED. RESPIRATION IS EVEN AND UNLABORED. ALL SAFETY MEASURES IMPLEMENTED. BED IN LOW POSITION, BED WHEELS ON LOCKED AND CALL LIGHT WITHIN REACH.
--- NOTE | 2022-09-12 02:00 | NUR ---
CHECKED THE PT, STILL SLEEPING. CHEST RISE AND FALL SYMMETRICALLY NOTED. RESPIRATION IS EVEN AND UNLABORED. ALL SAFETY MEASURES IMPLEMENTED. BED IN LOW POSITION, BED WHEELS ON LOCKED AND CALL LIGHT WITHIN REACH.
--- NOTE | 2022-09-12 04:00 | NUR ---
GIVE PT WATER PER PT REQUEST. ALL SAFETY MEASURES IMPLEMENTED. BED WHEELS ON LOCKED, BED IN LOW POSITION AND CALL LIGHT WITHIN REACH.
--- NOTE | 2022-09-12 06:00 | NUR ---
MORNING WAS DONE TO PT. CHANGED DIAPER, LINENS, GOWN AND BLANKET. FEED THE PT WITH APPLESAUCE. ALL SAFETY MEASURES IMPLEMENTED. BED IN LOW POSITION, BED WHEELS ON LOCKED AND CALL LIGHT WITHIN REACH.
[2022-09-12] MEDS: DEXT 5% /NACL 0.9% 1,000 ML IV SCH (06:15)
--- NOTE | 2022-09-12 07:20 | NUR ---
PT IS STABLE. ENDORSED PT TO MORNING SHIFT NURSE FOR CONTINUITY OF CARE.
[2022-09-12 07:30] LABS: HEMATOCRIT 25.3 % (36-52); HEMOGLOBIN 8.2 g/dL (12.0-18.0); MEAN CORPUSCULAR HEMOGLOBIN 31 pg (27-31); MEAN CORPUSCULAR HGB CONC 32 g/dL (33-37); MEAN CORPUSCULAR VOLUME 95.4 fL (80-94); PLATELET COUNT (AUTO) 228 K/uL (140-450); RED BLOOD CELL COUNT(AUTO) 2.65 MIL/uL (4.20-6.10); RED CELL DISTRIBUTION WIDTH 21.2 % (11.6-13.7); WHITE BLOOD COUNT (AUTO) 12.4 K/uL (4.8-10.8)
--- NOTE | 2022-09-12 07:39 | NUR ---
GOT REPORT FROM THE NIGHT NURSE, PT SLEEPING NO SOB [id number] ON. [email or web address]
[2022-09-12 07:41] LABS: ANION GAP 14.1 (8-16); CARBON DIOXIDE 24.3 mmol/L (21-32); CHLORIDE 106 mmol/L (98-107); CREATININE 0.9 mg/dL (0.6-1.3); GLUCOSE 143 mg/dL (74-106); POTASSIUM 3.4 mmol/L (3.5-5.1); SODIUM SERUM 141 mmol/L (136-145); UREA NITROGEN, BLOOD 14 mg/dL (7-18)
[2022-09-12 07:53] LABS: LYMPHOCYTES % (MANUAL) 35 % (20-46); MONOCYTES % (MANUAL) 18 % (5-12)
[2022-09-12 08:00] VITALS: BP 160/77
[2022-09-12] MEDS: ALBUTEROL SULFATE/IPRATROPIU 3 ML SOL IH SCH ×2 (08:07→14:32)
[2022-09-12] MEDS: PANTOPRAZOLE 40 MG TABEC PO SCH (08:13)
[2022-09-12] MEDS: lisinopriL 10 MG TAB PO SCH (08:13)
[2022-09-12] MEDS: BACLOFEN 10 MG TAB PO SCH ×2 (08:13→12:29)
[2022-09-12] MEDS: GAUZE TP SCH (13:29)
--- NOTE | 2022-09-12 13:48 | NUR ---
SATURATION 100% ON SUPPLEMENTAL OXYGEN AT 2 LPM VIA NC Addendum: 09/12/22 at 1437 by Joshua Magdaleno RT POST HHN THERAPY TITRATED FIO2 TO ROOM AIR VERONICA NOTIFIED
--- NOTE | 2022-09-12 15:13 | NUR ---
PT DISCHARGED, DISCHARGED INSTRUCTION GIVEN ,PT LEFT WITH TRANSPORT PERSONAL, IV AND ID BAND REMOVED, NO SOB ,NO DISCOMFORT, DISCHARGE PICTURES OF ULCER IS TAKEN.[email or web address]
== END 2022-09-12 15:15 | disposition home or self-care (01) | DRG 871 ==
LOC: MED 16:31 → MTU 22:39
PROVIDERS: ADMIT Family Medicine; ATTEND Family Medicine
DX: A41.9 Sepsis, unspecified organism (principal); E43 Unspecified severe protein-calorie malnutrition; J69.0 Pneumonitis due to inhalation of food and vomit; N17.0 Acute kidney failure with tubular necrosis; N39.0 Urinary tract infection, site not specified; E87.1 Hypo-osmolality and hyponatremia; K56.600 Partial intestinal obstruction, unspecified as to cause; Z68.1 Body mass index [BMI] 19.9 or less, adult; I10 Essential (primary) hypertension; J45.909 Unspecified asthma, uncomplicated; I73.9 Peripheral vascular disease, unspecified; E88.09 Other disorders of plasma-protein metabolism, not elsewhere classified; E83.51 Hypocalcemia; E86.0 Dehydration; D53.9 Nutritional anemia, unspecified; B96.89 Other specified bacterial agents as the cause of diseases classified elsewhere; Z20.822 Contact with and (suspected) exposure to COVID-19; R09.02 Hypoxemia; N40.0 Benign prostatic hyperplasia without lower urinary tract symptoms; I70.0 Atherosclerosis of aorta; K56.41 Fecal impaction; R59.9 Enlarged lymph nodes, unspecified; Z89.511 Acquired absence of right leg below knee; Z87.891 Personal history of nicotine dependence
CPT/HCPCS: 36415; 71045; 73630; 80048; 80053; 81001; 82150; 82550; 82553; 83036; 83605; 83690; 83735; 83880; 84100; 84436; 84439; 84443; 84479; 84484; 85025; 85610; 85651; 85730; 86140; 87040; 87081; 87086; 93005; 93922; 93925; 94010; 94640; 96365; 96367; 99291; J0696; J2543; J3370; J7030; J7060; Q0092; Q9967